=== PATIENT | female | born 1950 | race Caucasian/White ===

== ENCOUNTER 2017-08-05 18:32 | Inpatient (IN) | payer MEDICARE, MEDICAID ==
[2017-08-05 19:51] VITALS: BP 177/91
[2017-08-05] MEDS: Morphine Sulfate 4 mg/mL 1mL Syr IVP PRN ×2 (20:24→23:23)
[2017-08-05] MEDS ORDERED: Magnesium Hydroxide (MOM) 30 mL UDC PO PRN (20:24)
[2017-08-05] MEDS: Sodium Chloride 0.9% 1,000 ML IV SCH (21:13)
[2017-08-05] MEDS: INSULIN ASPART SLIDING SCALE 100 UNITS/ML UNIT SUBQ SCH (21:16)
[2017-08-06] MEDS: Morphine Sulfate 4 mg/mL 1mL Syr IVP PRN ×2 (02:08→05:20)
[2017-08-06 02:47] LABS: URINE MICROSCOPIC INDICATED? YES; URINE SOURCE CATH
[2017-08-06 03:00] LABS: URINE BILIRUBIN NEGATIVE (NEGATIVE); URINE BLOOD SMALL (NEGATIVE); URINE CLARITY HAZY (CLEAR); URINE COLOR YELLOW; URINE GLUCOSE (UA) >=1000 mg/dL (NEGATIVE); URINE KETONE 15 mg/dL (NEGATIVE); URINE LEUKOCYTE ESTERASE NEGATIVE (NEGATIVE); URINE NITRATE POSITIVE (NEGATIVE); URINE PROTEIN 100 mg/dL (NEGATIVE); URINE UROBILINOGEN 0.2 E.U./dL (0.2 - 1.0)
[2017-08-06 04:08] LABS: URINE BACTERIA MODERATE /hpf (NONE SEEN); URINE EPITHELIAL CELLS MODERATE /lpf (FEW)
[2017-08-06] MEDS: INSULIN ASPART SLIDING SCALE 100 UNITS/ML UNIT SUBQ SCH ×4 (07:03→20:33)
[2017-08-06 07:05] LABS: % EOSINOPHILS 0.1 % (0.0-5.0); % LYMPHOCYTES 12.8 % (20.0-50.0); % MONOCYTES 9.8 % (2.0-10.0); % NEUTROPHILS 77.3 % (40.0-80.0); HEMOGLOBIN 13.6 gm/dL (12-16); LYMPHOCYTE ABSOLUTE 1.9 Th/cmm (1.5-3.0); MEAN CELL VOLUME 89.2 fl (81-100); MEAN CORPUSCULAR HEMOGLOBIN 28.9 pg (27.0-31.0); MEAN CORPUSCULAR HGB CONC 32.4 pg (28.0-36.0); MONOCYTE ABSOLUTE 1.5 Th/cmm (0.3-1.0); NEUTROPHILE ABSOLUTE 11.4 Th/cmm (1.8-8.0); PLATELET COUNT 310 Th/cmm (150-400); RED BLOOD COUNT 4.71 Mil/cmm (3.80-5.10); RED CELL DISTRIBUTION WIDTH 12.5 % (11.5-20.0); WHITE BLOOD COUNT 14.8 Th/cmm (4.8-10.8)
[2017-08-06 07:23] LABS: ANION GAP 12.4 (7.0-16.0); BUN - UREA NITROGEN 25 mg/dL (7-25); CALCIUM SERUM 9.3 mg/dL (8.6-10.3); CARBON DIOXIDE 26.2 mEq/L (21.0-31.0); CHLORIDE 104 mEq/L (98-107); GFR AFRICAN-AMERICAN > 60.0 ml/min (>90); GFR NON AFRICAN-AMERICAN 59.3 ml/min; GLUCOSE 346 mg/dL (70-105); POTASSIUM SERUM 3.6 mEq/L (3.5-5.1); SODIUM SERUM 139 mEq/L (136-145)
--- NOTE | 2017-08-06 08:19 | Diagnostic Imaging Report ---
Exam: KUB of the abdomen. HISTORY: Abdominal pain. The KUB of the abdomen reviewed. The study demonstrates evidence of previous cholecystectomy. Multiple metallic clips are noted throughout the abdomen with the postoperative metallic sutures in the lower abdomen upper pelvic area. The urinary bladder opacified most likely with contrast material from previous examination. The bowel gas distribution nonspecific. Bony structures intact. Calcification of distal abdominal aorta and iliac vessels appreciated. IMPRESSION: Nonspecific bowel gas pattern. Residual contrast material reviewed in bladder. Clinical correlation recommended. Extensive postsurgical changes the abdomen.
--- NOTE | 2017-08-06 08:20 | Diagnostic Imaging Report ---
Portable chest x-ray Time: 0812 hours History: Cough Allowing for portable technique the heart size is normal. No focal pulmonary parenchymal processes. No hilar or mediastinal abnormalities. Left basilar atelectasis is noted with pleural thickening Impression: Left basilar atelectasis pleural thickening early infiltrate cannot be excluded follow-up examination recommended if clinically indicated.
[2017-08-06] MEDS: HYDROmorphone 2 mg/mL 1mL Vial IVP PRN (08:28)
[2017-08-06] MEDS ORDERED: oxyCODONE 5 mg IR Tab PO PRN (12:25)
[2017-08-06] MEDS ORDERED: Magnesium Hydroxide (MOM) 30 mL UDC PO PRN (12:25)
[2017-08-06] MEDS ORDERED: OXYCODONE HCL 40 MG PO PRN (12:25)
[2017-08-06] MEDS ORDERED: Magnesium Citrate 1.75 GM/300 mL Bottle PO ONE (12:30)
[2017-08-06] MEDS: Sodium Chloride 0.9% 1,000 ML IV SCH (14:36)
[2017-08-06] MEDS: Hydrocodone/APAP 5mg/325mg Tab PO PRN (16:08)
--- NOTE | 2017-08-06 16:18 | History & Physical ---
ADMIT DATE: 08/06/2017 CHIEF COMPLAINT: Abdominal pain. HISTORY OF PRESENT ILLNESS: A 66-year-old female from [facility], was sent to [place] for the complaint of acute abdominal pain. There a lab data was performed and showed a possible urinary tract infection. Imaging was pending prior to the patient being transferred over to [facility]. Gastroenterology was consulted at that time. The patient appears to have worsening abdominal pain and she vomited several times, coffee ground emesis at [place] and was witnessed to be vomiting bright red blood over at [place]. VITAL SIGNS: Temperature 98.8 degrees, pulse 104, respiratory 19, blood pressure is 154/68. PAST MEDICAL HISTORY: CVA with left side hemiplegia, hyperlipidemia, major depressive disorder, bilateral lower extremity edema, seizure disorder, hypertension, generalized anxiety disorder, diabetes, chronic pain syndrome. PAST SURGICAL HISTORY: No surgeries. FAMILY HISTORY: Unremarkable. SOCIAL HISTORY: Lives at [facility]. Denies drug, alcohol or tobacco. MEDICATIONS: Reviewed and reconciled. REVIEW OF SYSTEMS: CONSTITUTIONAL: No fevers, chills or sweats. EYES: No pain, vision change or redness. ENT: No ear pain, nasal congestion, or mouth pain. RESPIRATORY: Denies cough, shortness of breath, or wheezing. CARDIOVASCULAR: Denies chest pain, palpitations, orthopnea. GASTROINTESTINAL: Admits to diffuse, crampy abdominal pain with associated nausea, but denies vomiting. She did admit to vomiting multiple times with bright red blood. GENITOURINARY: Denies frequency, urgency, hesitancy. MUSCULOSKELETAL: Denies neck, shoulder, back pain. SKIN: No rashes, jaundice, or lesions. NEUROLOGIC: Left-sided paralysis following a stroke with numbness and associated tingling. PHYSICAL EXAMINATION: HEENT: PERRLA, EOMI. NECK: Supple. Trachea midline. CARDIOVASCULAR: Regular rate and rhythm. RESPIRATORY: CTA bilaterally. ABDOMEN: Soft. Tender to palpation diffusely along the left lower quadrant. No guarding or rebound tenderness. EXTREMITIES: Left-sided hemiplegia, +1 nonpitting edema. SKIN: Warm, dry, no rashes or open wounds. NEUROLOGIC: 2-12 are intact. ASSESSMENT: Sacral wounds. PLAN: GI was consulted. They will perform an EGD tomorrow morning. Protonix for GI prophylaxis. Begum catheter due to sacral wounds and possible infection risks. Clear liquid diet, nothing by mouth in the morning due to EGD. Heparin subq for DVT prophylaxis. [facility]# [id number]
[2017-08-06] MEDS ORDERED: VTE Chemical Prophylaxis Screen/Admission MC PRN (16:58)
[2017-08-06 17:31] LABS: A1C % 7.7 % (4.0-6.0)
--- NOTE | 2017-08-07 04:57 | Consultation ---
DATE OF CONSULTATION: 08/06/2017 REASON FOR CONSULTATION: GI bleed and abdominal pain. HISTORY OF PRESENT ILLNESS: This consult was obtained through the courtesy of Dr. Groves for this 66-year-old with history of morbid obesity who is hemiplegic secondary to stroke, who presented to the hospital because of few days of coffee-ground emesis and abdominal pain. Pain was epigastric and supraumbilical. The patient denies any weight loss. She has nausea, vomiting for 3 days accompanied with coffee ground emesis. She has constipation. She occasionally has blood in the stools for her hemorrhoids. PAST MEDICAL HISTORY: Diabetes, coronary artery disease, CVA, and obesity. PAST SURGICAL HISTORY: Small bowel surgery versus gastric surgery, I am not sure. longterm record stated she had gastric ulcer surgery, but the patient stated part of the small intestine was removed for something size of a cantaloupe and then it was connected back together. SOCIAL HISTORY: Ex-smoker, quit 16 years ago, nonalcoholic, non-IV drug abuser. FAMILY HISTORY: The patient is adopted. ALLERGIES: Sulfa. MEDICATIONS: The patient is on Tylenol, vitamin C, Lipitor, Colace, Celexa, heparin, Dilaudid, Zestril, Ativan, milk of magnesia, Antivert, Glucophage, Lopressor, Zofran, Protonix, Lyrica, Klor-Con, senna. REVIEW OF SYSTEMS: As stated above. There is nausea, vomiting, epigastric pain, constipation, rectal bleeding and coffee ground emesis. PHYSICAL EXAMINATION: GENERAL: The patient is awake, oriented to self, place, and time. The patient is in mild distress. VITAL SIGNS: Blood pressure was 154/68, heart rate 104, respiratory rate 18, temperature is 98.8. HEAD AND NECK: Pupils reactive to light. Extraocular muscles intact. Sclerae anicteric, conjunctivae not pale. Oral cavity, no lesion. NECK: Supple. No jugular venous distention, no carotid bruit or lymph node. CHEST: Good respiratory movements. LUNGS: Clear to auscultation. CARDIOVASCULAR: Regular rate and rhythm. No murmur or gallop. ABDOMEN: Soft, positive bowel sound, positive epigastric and supraumbilical tenderness. EXTREMITIES: Lower extremities, no edema. CENTRAL NERVOUS SYSTEM: Unable to evaluate. LABORATORY DATA: CBC showed white count of 14.8, glucose 346. The patient had a KUB which showed some residual contrast. Apparently, the patient had a CAT scan before. By report, it was negative. IMPRESSION: A 66-year-old with abdominal pain and coffee ground emesis. ASSESSMENT AND PLAN: Coffee-ground emesis, most likely peptic ulcer disease, erosive esophagitis, gastritis. RECOMMENDATIONS: 1. PPI. 2. EGD in the morning. 3. Further recommendations to follow. 4. Abdominal pain could be from peptic ulcer disease, could be from ileus. The patient with a previous surgery, but if the CAT scan is negative, we will give the patient a bottle of mag citrate and then we will see the clinical response. Other medical problem such as diabetes, coronary artery disease, CVA, etc., as per Dr. Groves. Thank you, Dr. Groves for allowing me to participate in the care of this patient. If you have any further questions, please let me know. JOB# [id number]
[2017-08-07] MEDS: Sodium Chloride 0.9% 1,000 ML IV SCH ×2 (06:04→23:51)
[2017-08-07 06:26] LABS: % BASOPHILS 0.2 % (0.0-2.0); % EOSINOPHILS 0.2 % (0.0-5.0); % LYMPHOCYTES 18.2 % (20.0-50.0); % MONOCYTES 13.3 % (2.0-10.0); % NEUTROPHILS 68.1 % (40.0-80.0); HEMATOCRIT 42.5 % (41.0-60); HEMOGLOBIN 14.1 gm/dL (12-16); LYMPHOCYTE ABSOLUTE 2.7 Th/cmm (1.5-3.0); MEAN CELL VOLUME 89.4 fl (81-100); MEAN CORPUSCULAR HEMOGLOBIN 29.7 pg (27.0-31.0); MEAN CORPUSCULAR HGB CONC 33.2 pg (28.0-36.0); NEUTROPHILE ABSOLUTE 10.3 Th/cmm (1.8-8.0); PLATELET COUNT 307 Th/cmm (150-400); RED BLOOD COUNT 4.76 Mil/cmm (3.80-5.10); RED CELL DISTRIBUTION WIDTH 12.7 % (11.5-20.0)
[2017-08-07] MEDS: INSULIN ASPART SLIDING SCALE 100 UNITS/ML UNIT SUBQ SCH ×4 (06:41→20:52)
[2017-08-07 06:54] LABS: ANION GAP 11.2 (7.0-16.0); BUN - UREA NITROGEN 22 mg/dL (7-25); CALCIUM SERUM 8.9 mg/dL (8.6-10.3); CARBON DIOXIDE 28.7 mEq/L (21.0-31.0); CHLORIDE 103 mEq/L (98-107); CREATININE - SERUM 0.7 mg/dL (0.6-1.2); GFR AFRICAN-AMERICAN > 60.0 ml/min (>90); GFR NON AFRICAN-AMERICAN > 60.0 ml/min; POTASSIUM SERUM 3.9 mEq/L (3.5-5.1); SODIUM SERUM 139 mEq/L (136-145)
[2017-08-07 06:59] LABS: GLUCOSE 175 mg/dL (70-105)
[2017-08-07 07:06] LABS: INR 1.06 (0.5-1.4)
[2017-08-07] MEDS ORDERED: Propofol 10 mg/mL 20mL Vial **SURGERY USE ONLY IV ONE (08:20)
[2017-08-07] MEDS ORDERED: Lidocaine 2% Gel 5 mL TP ONE (08:20)
[2017-08-07] MEDS ORDERED: Midazolam 1mg/ml 2 ml vial IV ONE (08:20)
[2017-08-07] MEDS ORDERED: fentaNYL Citrate 100 mcg/2mL Vial IV ONE (08:20)
[2017-08-07] MEDS: HYDROmorphone 2 mg/mL 1mL Vial IVP PRN (08:24)
[2017-08-07] MEDS: Potassium Chloride 20 mEq ER Tab PO SCH (08:45)
[2017-08-07] MEDS ORDERED: TICAGRELOR 90 MG PO SCH (09:00)
[2017-08-07] MEDS: Hydrocodone/APAP 5mg/325mg Tab PO PRN (11:34)
--- NOTE | 2017-08-07 13:16 | Operative Report ---
DATE OF SURGERY: 08/07/2017 INPATIENT GASTROINTESTINAL PROCEDURE NAME OF PROCEDURE: EGD with biopsy. REFERRING PHYSICIAN: Dr. Groves. REASON FOR PROCEDURE: Upper GI bleed in the form of coffee-ground emesis. CONSENT: Risks, benefits, alternatives, nature, indication, and possible outcomes were discussed. Mentioned bleeding, infection, perforation, , disability, cardiopulmonary distress and arrest, missed lesion and cancers, and need for surgery. The patient expressed understanding and provided informed consent. PREOPERATIVE DIAGNOSIS: Upper gastrointestinal bleeding. POSTOPERATIVE DIAGNOSES: Hemorrhagic gastritis, hiatal hernia, and irregular Z-line. MEDICATIONS: MAC provided by anesthesiologist. DESCRIPTION OF PROCEDURE: The patient was placed on the left side. Upper endoscope was advanced from the mouth to the second portion of duodenum, which appeared to be normal with bile. Scope brought back in stomach, retroflexion view of fundus, cardia, lesser curvature, and hiatal hernia. Scope was then straightened. Hemorrhagic gastritis was seen with associated coffee-ground secretions. Biopsies were taken. No obvious ulcers or masses were seen. Scope was slowly withdrawn through esophagus where there was an irregular Z-line, biopsies were taken, and scope was then removed. COMPLICATIONS: None. FINDINGS: 1. GE junction at 37 cm with a medium size hiatal hernia with no associated bleeding within the hiatal hernia. 2. Hemorrhagic gastritis, status post biopsy likely source of bleeding. 3. Normal duodenum. RECOMMENDATIONS: 1. Follow up on biopsy. 2. Provide the patient with Protonix. 3. If hiatal hernia ever becomes symptomatic, consider surgical evaluation. Thank you for allowing me to participate. Please call me if any questions. JOB# [id number]
[2017-08-08 06:25] LABS: % BASOPHILS 0.3 % (0.0-2.0); % EOSINOPHILS 1.5 % (0.0-5.0); % LYMPHOCYTES 33.9 % (20.0-50.0); % NEUTROPHILS 52.3 % (40.0-80.0); EOSINOPHILE ABSOLUTE 0.2 Th/cmm (0.1-0.4); HEMOGLOBIN 11.6 gm/dL (12-16); LYMPHOCYTE ABSOLUTE 3.6 Th/cmm (1.5-3.0); MEAN CELL VOLUME 90.4 fl (81-100); MEAN CORPUSCULAR HEMOGLOBIN 29.7 pg (27.0-31.0); MEAN CORPUSCULAR HGB CONC 32.8 pg (28.0-36.0); MEAN PLATELET VOLUME 8.4 fl; MONOCYTE ABSOLUTE 1.3 Th/cmm (0.3-1.0); NEUTROPHILE ABSOLUTE 5.6 Th/cmm (1.8-8.0); RED CELL DISTRIBUTION WIDTH 12.1 % (11.5-20.0)
[2017-08-08 06:30] LABS: HEMATOCRIT 35.2 % (41.0-60); PLATELET COUNT 241 Th/cmm (150-400); WHITE BLOOD COUNT 10.7 Th/cmm (4.8-10.8)
[2017-08-08] MEDS: INSULIN ASPART SLIDING SCALE 100 UNITS/ML UNIT SUBQ SCH ×3 (06:37→16:56)
[2017-08-08 08:06] LABS: ANION GAP 10.5 (7.0-16.0); BUN - UREA NITROGEN 15 mg/dL (7-25); CALCIUM SERUM 8.3 mg/dL (8.6-10.3); CARBON DIOXIDE 27.3 mEq/L (21.0-31.0); CHLORIDE 102 mEq/L (98-107); CREATININE - SERUM 0.7 mg/dL (0.6-1.2); GFR AFRICAN-AMERICAN > 60.0 ml/min (>90); GFR NON AFRICAN-AMERICAN > 60.0 ml/min; GLUCOSE 109 mg/dL (70-105); POTASSIUM SERUM 3.8 mEq/L (3.5-5.1); SODIUM SERUM 136 mEq/L (136-145)
--- NOTE | 2017-08-08 08:43 | GI Progress Note ---
Subjective - Review of Systems Subjective: STILL HAS EPIGASTRIC PAIN Objective - Results Result Diagrams: 08/08/17 05:37 08/08/17 05:37 Recent Labs: Laboratory Last Values WBC 10.7 Th/cmm (4.8-10.8) D 08/08/17 05:37 RBC 3.90 Mil/cmm (3.80-5.10) 08/08/17 05:37 Hgb 11.6 gm/dL (12-16) L 08/08/17 05:37 Hct 35.2 % (41.0-60) L D 08/08/17 05:37 MCV 90.4 fl (81-100) 08/08/17 05:37 MCH 29.7 pg (27.0-31.0) 08/08/17 05:37 MCHC Differential 32.8 pg (28.0-36.0) 08/08/17 05:37 RDW 12.1 % (11.5-20.0) 08/08/17 05:37 Plt Count 241 Th/cmm (150-400) D 08/08/17 05:37 MPV 8.4 fl 08/08/17 05:37 Neutrophils % 52.3 % (40.0-80.0) 08/08/17 05:37 Lymphocytes % 33.9 % (20.0-50.0) 08/08/17 05:37 Monocytes % 12.0 % (2.0-10.0) H 08/08/17 05:37 Eosinophils % 1.5 % (0.0-5.0) 08/08/17 05:37 Basophils % 0.3 % (0.0-2.0) 08/08/17 05:37 PT 11.0 SECONDS (9.5-11.5) 08/07/17 05:46 INR 1.06 (0.5-1.4) 08/07/17 05:46 Sodium 136 mEq/L (136-145) 08/08/17 05:37 Potassium 3.8 mEq/L (3.5-5.1) 08/08/17 05:37 Chloride 102 mEq/L (98-107) 08/08/17 05:37 Carbon Dioxide 27.3 mEq/L (21.0-31.0) 08/08/17 05:37 Anion Gap 10.5 (7.0-16.0) 08/08/17 05:37 BUN 15 mg/dL (7-25) 08/08/17 05:37 Creatinine 0.7 mg/dL (0.6-1.2) 08/08/17 05:37 Est GFR ( Amer) > 60.0 ml/min (>90) 08/08/17 05:37 Est GFR (Non-Af Amer) > 60.0 ml/min 08/08/17 05:37 BUN/Creatinine Ratio 21.4 08/08/17 05:37 Glucose 109 mg/dL (70-105) H 08/08/17 05:37 POC Glucose 123 MG/DL (70 - 105) H 08/08/17 05:46 Hemoglobin A1c % 7.7 % (4.0-6.0) H 08/06/17 05:55 Calcium 8.3 mg/dL (8.6-10.3) L 08/08/17 05:37 Urine Source CATH 08/06/17 02:17 Urine Color YELLOW 08/06/17 02:17 Urine Clarity HAZY (CLEAR) 08/06/17 02:17 Urine pH 5.0 (4.6 - 8.0) 08/06/17 02:17 Ur Specific [place] 1.025 (1.005-1.030) 08/06/17 02:17 Urine Protein 100 mg/dL (NEGATIVE) H 08/06/17 02:17 Urine Glucose (UA) >=1000 mg/dL (NEGATIVE) H 08/06/17 02:17 Urine Ketones 15 mg/dL (NEGATIVE) H 08/06/17 02:17 Urine Blood SMALL (NEGATIVE) H 08/06/17 02:17 Urine Nitrate POSITIVE (NEGATIVE) H 08/06/17 02:17 Urine Bilirubin NEGATIVE (NEGATIVE) 08/06/17 02:17 Urine Urobilinogen 0.2 E.U./dL (0.2 - 1.0) 08/06/17 02:17 Ur Leukocyte Esterase NEGATIVE (NEGATIVE) 08/06/17 02:17 Urine RBC 2-5 /hpf (0-5) 08/06/17 02:17 Urine WBC 6-10 /hpf (0-5) H 08/06/17 02:17 Ur Epithelial Cells MODERATE /lpf (FEW) 08/06/17 02:17 Urine Bacteria MODERATE /hpf (NONE SEEN) H 08/06/17 02:17 - Physical Exam Vitals and I&O: Vital Signs Temp 97.6 F 08/08/17 08:09 Pulse 56 08/08/17 08:39 Resp 12 08/08/17 08:39 BP 90/46 08/08/17 08:09 Pulse Ox 98 08/08/17 08:39 Intake & Output 08/07/17 08/08/17 08/08/17 18:59 06:59 18:59 Intake Total 100 1580 Output Total 1000 Balance 100 580 Weight (lbs) 73.482 kg Intake: Intake, IV Amount 100 1100 Piperacillin Sodium/ 100 100 Tazobact 3.375 gm In Dextrose 5% 50 ml @ 100 mls/hr IV Q6HR [facility] Rx#: [id number] Sodium Chloride 0.9% 1, 1000 000 ml @ 60 mls/hr IV . [id number] [facility] Rx#:[id number] Oral 480 Output: Urine 1000 Other: # Bowel Movements 0 Stool Characteristics Formed Formed Active Medications: Current Medications Acetaminophen (Tylenol) 650 mg PO Q6H PRN PRN Reason: Mild Pain/Headache/T above 101 Stop: 10/04/17 20:23 Acetaminophen/Hydrocodone Bitart ([place] 5mg/325mg) 1 tab PO Q6H PRN PRN Reason: MODERATE PAIN Stop: 10/04/17 20:13 Last Admin: 08/07/17 11:34 Dose: 1 tab Ascorbic Acid (Vitamin C) 500 mg PO DAILY [facility] Stop: 10/06/17 08:59 Last Admin: 08/07/17 08:42 Dose: Not Given Atorvastatin Calcium (Lipitor) 40 mg PO DAILY [facility] Stop: 10/06/17 08:59 Last Admin: 08/07/17 08:43 Dose: Not Given Bisacodyl (Dulcolax 10 Mg Supp) 10 mg RC DAILY PRN PRN Reason: CONSTIPATION Stop: 10/05/17 12:25 Citalopram Hydrobromide (Celexa) 20 mg PO HS EREN PRN Reason: Protocol Stop: 10/05/17 20:59 Last Admin: 08/07/17 20:52 Dose: 20 mg Heparin Sodium (Porcine) (Heparin) 5,000 units SUBQ Q12HR [facility] Stop: 10/04/17 20:59 Last Admin: 08/07/17 20:52 Dose: 5,000 units Hydralazine HCl (Apresoline 20 Mg/Ml) 10 mg IV Q6HR PRN PRN Reason: htn Stop: 10/04/17 20:27 Hydromorphone HCl (Dilaudid) 0.5 mg IVP Q4HR PRN PRN Reason: Severe Pain Stop: 10/05/17 07:40 Last Admin: 08/07/17 08:24 Dose: 0.5 mg Sodium Chloride (Nacl 0.9%) 1,000 mls @ 60 mls/hr IV .[id number] [facility] Stop: 10/04/17 20:29 Last Admin: 08/07/17 23:51 Dose: 60 mls/hr Piperacillin Sod/Tazobactam (Sod 3.375 gm/ Dextrose) 50 mls @ 100 mls/hr IV Q6HR [facility] Stop: 10/06/17 11:59 Last Infusion: 08/08/17 05:45 Dose: Infused Insulin Aspart (Novolog Insulin Sliding Scale) 0 units SUBQ ACHS EREN PRN Reason: Protocol Stop: 10/04/17 20:59 Last Admin: 08/08/17 06:37 Dose: Not Given Lisinopril (Zestril) 20 mg PO DAILY [facility] Stop: 10/06/17 08:59 Last Admin: 08/07/17 08:43 Dose: Not Given Lorazepam (Ativan) 0.5 mg PO Q6HR PRN; Protocol PRN Reason: Anxiety Stop: 10/05/17 12:24 Last Admin: 08/07/17 23:50 Dose: 0.5 mg Magnesium Hydroxide (Milk Of Magnesia) 30 ml PO HS PRN PRN Reason: Constipation Stop: 10/04/17 20:23 Meclizine HCl (Antivert) 25 mg PO Q8HR PRN PRN Reason: Dizziness Stop: 10/05/17 12:24 Metformin HCl (Glucophage) 500 mg PO BID [facility] Stop: 10/05/17 16:59 Last Admin: 08/07/17 16:54 Dose: 500 mg Metoprolol Tartrate (Lopressor) 25 mg PO BID [facility] Stop: 10/05/17 16:59 Last Admin: 08/07/17 16:56 Dose: 25 mg Miscellaneous (Vte Chemical Prophylaxis Screen/ Admission) 1 ea [facility] PRN PRN PRN Reason: PROTOCOL Stop: 10/05/17 16:57 Ondansetron HCl (Zofran) 4 mg IVP Q6H PRN PRN Reason: Nausea / Vomiting Stop: 10/04/17 20:23 Last Admin: 08/07/17 15:00 Dose: 4 mg Oxycodone HCl (Oxycodone Ir) 5 mg PO Q4HR PRN PRN Reason: Severe Pain Stop: 10/05/17 12:24 Oxycodone HCl (Oxycontin) 40 mg PO TID EREN Stop: 10/05/17 20:59 Last Admin: 08/07/17 20:52 Dose: 40 mg Pantoprazole Sodium (Protonix) 40 mg IVP BID EREN Stop: 10/05/17 16:59 Last Admin: 08/07/17 16:57 Dose: 40 mg Ticagrelor (Brilinta () 90mg Tablet) 1 PO DAILY EREN Stop: 10/07/17 08:59 Potassium Chloride (Klor-Con) 20 meq PO DAILY [facility] Stop: 10/06/17 08:59 Last Admin: 08/07/17 08:45 Dose: Not Given Pregabalin (Lyrica) 75 mg PO BID EREN Stop: 10/05/17 16:59 Last Admin: 08/07/17 16:54 Dose: 75 mg Senna (Senna) 8.6 mg PO DAILY [facility] Stop: 10/06/17 08:59 Last Admin: 08/07/17 08:45 Dose: Not Given Assessment/Plan - Assessment Assessment: 66 YO FEMALE WITH EPIGASTRIC PAIN EGD SHOWED HIATAL HERNIA AND HEMORRHAGIC GASTRITIS 1.CONT PROTONIX 2.AWAIT BX 3.CHECK LFTS, LIPASE, KARAN
[2017-08-08] MEDS: Potassium Chloride 20 mEq ER Tab PO SCH (08:47)
[2017-08-08] MEDS: TICAGRELOR 90 MG PO SCH (09:10)
[2017-08-08 09:46] LABS: ALB/GLOB RATIO 1.6 (1.0-1.8); ALBUMIN 3.4 gm/dL (3.7-5.3); BILIRUBIN,TOTAL 0.5 mg/dL (0.3-1.0); TOTAL PROTEIN,SERUM 5.5 gm/dL (6.0-8.3)
[2017-08-08 09:48] LABS: BILIRUBIN,DIRECT 0.09 mg/dL (0.0-0.2)
[2017-08-08] MEDS ORDERED: Magnesium Hydroxide (MOM) 30 mL UDC PO ONE (10:33)
[2017-08-08] MEDS: Lactulose 10 Gm/15 mL 30mL UDC PO SCH ×2 (11:16→17:16)
[2017-08-08] MEDS: HYDROmorphone 2 mg/mL 1mL Vial IVP PRN (12:01)
[2017-08-08] MEDS ORDERED: Probiotic Screen MC PRN (16:15)
[2017-08-08] MEDS: Sodium Chloride 0.9% 1,000 ML IV SCH (17:18)
[2017-08-08] MEDS: Hydrocodone/APAP 5mg/325mg Tab PO PRN (23:55)
[2017-08-09] MEDS: INSULIN ASPART SLIDING SCALE 100 UNITS/ML UNIT SUBQ SCH ×3 (00:40→11:04)
[2017-08-09 05:49] LABS: % BASOPHILS 0.1 % (0.0-2.0); % EOSINOPHILS 2.4 % (0.0-5.0); % LYMPHOCYTES 28.7 % (20.0-50.0); % MONOCYTES 10.9 % (2.0-10.0); % NEUTROPHILS 57.9 % (40.0-80.0); EOSINOPHILE ABSOLUTE 0.2 Th/cmm (0.1-0.4); HEMATOCRIT 33.1 % (41.0-60); HEMOGLOBIN 11.3 gm/dL (12-16); LYMPHOCYTE ABSOLUTE 2.3 Th/cmm (1.5-3.0); MEAN CELL VOLUME 88.8 fl (81-100); MEAN CORPUSCULAR HEMOGLOBIN 30.3 pg (27.0-31.0); MEAN CORPUSCULAR HGB CONC 34.1 pg (28.0-36.0); MEAN PLATELET VOLUME 8.9 fl; MONOCYTE ABSOLUTE 0.9 Th/cmm (0.3-1.0); NEUTROPHILE ABSOLUTE 4.6 Th/cmm (1.8-8.0); PLATELET COUNT 187 Th/cmm (150-400); RED BLOOD COUNT 3.73 Mil/cmm (3.80-5.10); RED CELL DISTRIBUTION WIDTH 12.2 % (11.5-20.0)
[2017-08-09 05:58] LABS: ANION GAP 8.1 (7.0-16.0); BUN - UREA NITROGEN 14 mg/dL (7-25); CARBON DIOXIDE 26.4 mEq/L (21.0-31.0); CHLORIDE 103 mEq/L (98-107); CREATININE - SERUM 0.7 mg/dL (0.6-1.2); GFR AFRICAN-AMERICAN > 60.0 ml/min (>90); GFR NON AFRICAN-AMERICAN > 60.0 ml/min; GLUCOSE 109 mg/dL (70-105); POTASSIUM SERUM 3.5 mEq/L (3.5-5.1); SODIUM SERUM 134 mEq/L (136-145)
[2017-08-09] MEDS ORDERED: Lactobacillus Rhamnosus GG 15 Billion CFU CAP.SPRINK PO SCH (09:00)
[2017-08-09] MEDS: Lactulose 10 Gm/15 mL 30mL UDC PO SCH (09:16)
[2017-08-09] MEDS: TICAGRELOR 90 MG PO SCH (09:17)
[2017-08-09] MEDS: Potassium Chloride 20 mEq ER Tab PO SCH (09:17)
--- NOTE | 2017-08-09 10:06 | Progress Notes ---
DATE: SUBJECTIVE: The patient is lying comfortably in bed, continues to complain of abdominal pain at this time. The patient had an EGD this morning, which revealed a hiatal hernia and hemorrhagic gastritis. Pain is currently controlled when she takes pain medication. No nausea or vomiting. Diet; advance to clears. OBJECTIVE: VITAL SIGNS: Temperature 97.9, pulse 98, blood pressure 159/78, respirations 18. GENERAL: NAD. HEENT: PERRLA, EOMI. NECK: Supple. Trachea midline. CARDIOVASCULAR: Regular rate and rhythm. RESPIRATORY: CTA bilaterally. No wheezes, rales or rhonchi. ABDOMEN: Soft, nontender, nondistended. Bowel sounds present in all 4 quadrants. SKIN: No rashes or open wounds. MUSCULOSKELETAL: Left-sided hemiplegia. LABORATORY DATA: White blood cell count 15. Sodium 139, potassium 3.9. ASSESSMENT: Hyperlipidemia, major depressive disorder, DVT prophylaxis, hypertension, diabetes, chronic pain syndrome. PLAN: Zosyn. Pain control. Continue metoprolol, lisinopril, metformin, Accu-Cheks, regular insulin sliding scale. Diet has been advanced to clear liquids. JOB# [id number]
--- NOTE | 2017-08-09 10:38 | Diagnostic Imaging Report ---
Abdominal ultrasound HISTORY: Pain The liver appears enlarged. There is an increase in hepatic parenchymal echogenicity. The finding may be associated with fatty infiltration and should be correlated with liver function tests. No focal lesions. The gallbladder is not seen consistent with patient's surgical history. No biliary dilatation. The pancreas is not well seen due to bowel gas. The kidneys appear normal bilaterally. The spleen is normal in size. No other retroperitoneal or intra-abdominal abnormalities. IMPRESSION: 1. Limited exam due to bowel gas as noted above. 2. Suggestion of hepatomegaly along with parenchymal changes that may reflect fatty infiltration. The findings should be correlated with liver function tests 3. Nonvisualization of the gallbladder consistent with the patient's surgical history.
[2017-08-09] MEDS: Sodium Chloride 0.9% 1,000 ML IV SCH (13:50)
--- NOTE | 2017-08-10 | Discharge Summary ---
DATE OF DISCHARGE: 08/09/2017 DISCHARGE DIAGNOSES: Aspiration pneumonia, hyperlipidemia, major depressive disorder, DVT prophylaxis, diabetes, chronic pain syndrome, hypertension, hiatal hernia, hemorrhagic gastritis. ADMITTING DIAGNOSES: Abdominal pain, aspiration pneumonia, hypertension, and diabetes. HISTORY OF PRESENT ILLNESS: A 66-year-old female presented from [facility] with the chief complaint of abdominal pain. Gastroenterology was consulted and opted to perform an EGD. At that time hemorrhagic gastritis was found with irregular Z-line and hiatal hernia. No colonoscopy was performed at that time. No rectal bleeding had been seen. The patient's hemoglobin remained stable in the mid to high at 11. Urinalysis revealed urinary tract infection with MDRO E. coli, which was sensitive to Zosyn. The patient will be discharged back to [facility] on Zosyn with the diagnosis of aspiration pneumonia and urinary tract infection. COMPLICATIONS: None. PROCEDURES: EGD. DISPOSITION: Stable back to [place]. Follow up with Dr. Groves upon arrival. JOB# [id number]
--- NOTE | 2017-08-10 14:20 | Pathology Report ---
[id number] Collection Date: 08/07/2017 Surgeon: Dr. Steve Moseley Specimen Description: 1. Antrum biopsy 2. GE junction biopsy Gross Description: Part I: Received in formalin are two smith soft tissue fragments ranging from 0.1 to 0.2 cm in greatest dimension. Totally submitted in one cassette labeled A. Gross Description: Part II: Received in formalin are two smith soft tissue fragments ranging from 0.1 to 0.2 cm in greatest dimension. Totally submitted in one cassette labeled B. Microscopic Description: Part I: The histologic sections show gastric mucosa with chronic inflammation present consisting of lymphocytes and plasma cells. The Giemsa stain shows no evidence for Helicobacter pylori. Diagnosis: Part I: 1. Chronic gastritis, antrum biopsy. 2. The Giemsa stain is negative for Helicobacter pylori. Microscopic Description: Part II: The histologic sections show squamous and glandular mucosa consistent with GE junction with chronic inflammation present consisting of increased numbers of lymphocytes and plasma cells. The Alcian blue stain shows no evidence for abnormality. The PAS stain shows no evidence for fungal organisms. Diagnosis: Part II: Chronic inflammation consistent with esophagogastritis (GE junction biopsy). JOB# [id number]
--- NOTE | 2017-08-25 11:57 | Discharge Summary ---
DATE OF DISCHARGE: DISCHARGE DIAGNOSES: Aspiration pneumonia, CVA with left-sided hemiplegia, diabetes, fecal impaction with obstipation, hyperlipidemia, major depressive disorder, hypertension, generalized anxiety disorder, polyneuropathy, hiatal hernia, and gastritis. ADMITTING DIAGNOSES: Abdominal pain, constipation, CVA with left-sided hemiplegia, hypertension, hyperlipidemia. HISTORY OF PRESENT ILLNESS: A 66-year-old female who presented from [place] with a chief complaint of abdominal pain. Imaging was performed and revealed constipation. The patient has a longstanding history of gastritis as well as ulcerations. Gastroenterology was consulted and at that time, the patient underwent an EGD, which revealed hemorrhagic gastritis with hiatal hernia. The patient was started on Protonix due to the gastritis and the hiatal hernia. The patient started to have bowel movements after medications were adjusted. Following the bowel movements, her abdominal pain resolved and she was discharged back to [place]. DISPOSITION: [place], stable. Chest x-ray was also performed and it revealed that patient had aspiration pneumonia. She was started on Zosyn, that will be continued over at shelter. Follow up will be with Dr. Groves. PROCEDURE: EGD. COMPLICATIONS: None. JOB# [id number]
== END 2017-08-09 16:30 | DRG 177 ==
LOC: TELE 18:32
PROVIDERS: ADMIT Family Medicine; ATTEND Family Medicine
PROC: 0DB68ZX Excision of Stomach, Via Natural or Artificial Opening Endoscopic, Diagnostic (ICD-10-PCS; principal; 2017-08-07)
DX: J69.0 Pneumonitis due to inhalation of food and vomit (principal); K29.71 Gastritis, unspecified, with bleeding; E66.01 Morbid (severe) obesity due to excess calories; N39.0 Urinary tract infection, site not specified; I69.354 Hemiplegia and hemiparesis following cerebral infarction affecting left non-dominant side; E11.9 Type 2 diabetes mellitus without complications; B96.20 Unspecified Escherichia coli [E. coli] as the cause of diseases classified elsewhere; E78.5 Hyperlipidemia, unspecified; F32.9 Major depressive disorder, single episode, unspecified; K44.9 Diaphragmatic hernia without obstruction or gangrene; G40.909 Epilepsy, unspecified, not intractable, without status epilepticus; I10 Essential (primary) hypertension; G89.4 Chronic pain syndrome; F41.1 Generalized anxiety disorder; I25.10 Atherosclerotic heart disease of native coronary artery without angina pectoris; Z16.24 Resistance to multiple antibiotics; Z68.32 Body mass index [BMI] 32.0-32.9, adult
CPT/HCPCS: 36415-UA; 71045-TC; 74000-TC; 76700-TC; 80048-TC; 80076-TC; 81001-TC; 82948-90; 83036-90; 83690-TC; 85025-TC; 85610-TC; 87086-90; 88305-90; 88312-90; 93005; 94760; C9113; J0360; J1170; J1644; J1815; J2250; J2405; J2543; J2704; J3010; J7030; X6158; Z7512; Z7610

== ENCOUNTER 2018-11-09 12:21 | Inpatient (IN) | payer MEDICARE, BC ==
[2018-11-09] MEDS ORDERED: Sodium Chloride 0.9% 1,000 ML IV ONE (12:35)
[2018-11-09 13:02] LABS: % BASOPHILS 3.9 % (0.0-2.0); % EOSINOPHILS 0.2 % (0.0-5.0); % MONOCYTES 3.9 % (2.0-10.0); BASOPHILE ABSOLUTE 0.7 Th/cumm (0-0.2); HEMATOCRIT 41.9 % (41.0-60); LYMPHOCYTE ABSOLUTE 1.3 Th/cmm (1.5-3.0); MEAN CELL VOLUME 83.5 fl (81-100); MEAN CORPUSCULAR HEMOGLOBIN 27.8 pg (27.0-31.0); MEAN CORPUSCULAR HGB CONC 33.3 pg (28.0-36.0); MEAN PLATELET VOLUME 8.9 fl; MONOCYTE ABSOLUTE 0.7 Th/cmm (0.3-1.0); NEUTROPHILE ABSOLUTE 15.8 Th/cmm (1.8-8.0); PLATELET COUNT 357 Th/cmm (150-400); RED BLOOD COUNT 5.02 Mil/cmm (3.80-5.20); RED CELL DISTRIBUTION WIDTH 14.2 % (11.5-20.0)
[2018-11-09 13:06] LABS: WHITE BLOOD COUNT 18.5 Th/cmm (4.8-10.8)
--- NOTE | 2018-11-09 13:06 | ED Physician Chart ---
ED Chief Complaint/HPI - Patient Information Date Seen:: 11/09/18 Time Seen:: 12:45 Chief Complaint:: Abdominal Pain History of Present Illness:: onset x 2 days of intermittent, diffuse, crampy Abdominal Pain, N/V/D; pt denies trauma, H/As, S/T, neck pain, C/P, SOB, A/c, fever, chills, or urinary s/ s Allergies:: Allergies Allergy/AdvReac Type Severity Reaction Status Date / Time Sulfa (Sulfonamide Allergy Severe palpitation Verified 11/09/18 12:58 Antibiotics) trazodone Allergy Verified 11/09/18 12:58 Vitals:: Vital Signs - 8 hr 11/09/18 12:44 Temp 97.6 F HR 64 RR 16 BP 159/72 O2 Sat % 96 Historian:: Patient, EMS Review:: Nurse's Note Reviewed, Old Chart Reviewed, EMS run form Reviewed ED Review of Systems - Review of Systems General/Constitutional: No fever, No chills, No weight loss, No weakness, No diaphoresis, No edema, No loss of appetite Skin: No skin lesions, No rash, No bruising Head: No headache, No light-headedness Eyes: No loss of vision, No pain, No diplopia ENT: No earache, No nasal drainage, No sore throat, No tinnitus Neck: No neck pain, No swelling, No thyromegaly, No stiffness, No mass noted Cardio Vascular: No chest pain, No palpitations, No PND, No orthopnea, No edema Pulmonary: No SOB, No cough, No sputum, No wheezing GI: Nausea, Vomiting, Diarrhea, Pain, No melena, No hematochezia, No constipation, No hematemesis G/U: No dysuria, No frequency, No hematuria, No nacturia Cork Mixer: No vaginal discharge, No abnormal vaginal bleed, No contraction Musculoskeletal: No bone or joint pain, No back pain, No muscle pain Endocrine: No polyuria, No polydipsia Psychiatric: No prior psych history, No depression, No anxiety, No suicidal ideation, No homicidal ideation, No auditory hallucination, No visual hallucination Hematopoietic: No bruising, No lymphadenopathy Allergic/Immuno: No urticaria, No angioedema Neurological: No syncope, No focal symptoms, No weakness, No paresthesia, No headache, No seizure, No dizziness, No confusion, No vertigo ED Past Medical History - Past Medical History Obtainable: Yes Past Medical History: HTN, DM, Dyslipidemia Family History: Diabetes Melitus, HTN Social History: Non Smoker, No Alcohol, No Drug Use, , Care Facility Surgical History: Cholecystectomy Psychiatricy History: None Medication: Reviewed Family Medical History - Family Member Daughter History Unknown: Yes Ethnicity: Unknown Living Status: Unknown Hx Family Cancer: (unknown) Hx Family Coronary Artery Disease: (UNKNOWN) Hx Family Congestive Heart Failure: (UNKNOWN) Hx Family Hypertension: (UNKNOWN) Hx Family Stroke: (UNKNOWN) Hx Family Diabetes: (UNKNOWN) Hx Family Seizures: (UNKNOWN) Hx Family Dementia: (UNKNOWN) Hx Family AIDS: (UNKNOWN) Hx Family COPD: (UNKNOWN) Hx Family Hepatitis: (UNKNOWN) Hx Family Psychiatric Problems: (UNKNOWN) Hx Family Tuberculosis: (UNKNOWN) ED Physical Exam - Physical Examination General/Constitutional: Awake, Well-developed, well-nourished, Alert, No distress, GCS 15, Non-toxic appearing, Ambulatory Head: Atraumatic Eyes: Lids, conjuctiva normal, PERRL, EOMI Skin: Nl inspection, No rash, No skin lesions, No ecchymosis, Well hydrated, No lymphadenopathy ENMT: External ears, nose nl, TM canals nl, Nasal exam nl, Lips, teeth, gums nl , Oropharynx nl, Tonsils nl Neck: Nontender, Full ROM w/o pain, No JVD, No nuchal rigidity, No bruit, No mass, No stridor Other Neck comments:: supple; no meningeal signs; no cervical tenderness Respiratory: Nl effort/Exclusion, Clear to Auscultation, No Wheeze/Rhonchi/Rales Cardio Vascular: RRR, No murmur, gallop, rubs, NL S1 S2, Carotid/Femoral/Distal pulses equal bilaterally GI: No organomegaly, No hernia, Normal BS's, Nondistended, No mass/bruits, No McBurney tenderness, Rectum exam nl Other GI comments:: no pulsatile masses; + Diffuse Tenderness : No CVA tenderness Extremities: No tenderness or effusion, Full ROM, normal strength in all extremities, No edema, Normal digits & nails Neuro/Psych: Alert/oriented, DTR's symmetric, Normal sensory exam, Normal motor strength, Judgement/insight normal, Mood normal, Normal gait, No focal deficits Misc: Normal back, No paraspinal tenderness ED Labs/Radiology/EKG Results - Lab Results Comments:: Reviewed - Radiology Results Comments:: NAD; + Fecal Impaction; ASCVD - EKG Interpretations EKG Time:: 12:44 Rate & Rhythm: 68; NSR Comments:: IVCD; non-specific st-t changes ED Septic Shock - . Is Septic Shock (SBP<90, OR Lactate>4 mmol\L) present?: No - <6hrs of presentation: Vital Signs: Vital Signs - 8 hr 11/09/18 12:44 Temp 97.6 F HR 64 RR 16 BP 159/72 O2 Sat % 96 ED Reassessment (Disposition) - Reassessment Reassessment Condition:: Improved - Diagnosis Diagnosis:: Abdominal Pain; N/V/D; AGE; DM; HTN; Dehydration; Elevated Lactic Acid; Lactic Acidosis; Hematuria; Leukocytosis; Hyponatremia; Hyperglycemia; Elevated BNP; Diabetic Gastroparesis - Aftercare/Follow up Instructions Aftercare/Follow-Up Instructions:: Counseled pt regarding lab results/diagnosis & need follow up, Counseled pt & family regarding lab results/diagnosis & need follow up - Patient Disposition Discharge/Transfer:: Acute Care w/in this hosp Accepting Physician:: Dr. Koroma Time Called:: 1440 Time Responded:: 14:40 Admitted to:: Telemetry Spoke to:: Dr. Koroma Admitting Medical Physician:: Dr. Koroma Condition at Disposition:: Stable, Improved
[2018-11-09 13:11] LABS: INR 1.09 (0.5-1.4); PROTHROMBIN TIME (TEST) 11.3 SECONDS (9.5-11.5)
[2018-11-09 13:17] LABS: ALB/GLOB RATIO 1.1 (1.0-1.8); ALBUMIN 4.5 gm/dL (3.7-5.3); ALKALINE PHOSPHATASE 114 U/L (34-104); AMYLASE SERUM 43 U/L (29-103); ANION GAP 21.7 (7.0-16.0); BILIRUBIN,TOTAL 0.8 mg/dL (0.3-1.0); BUN - UREA NITROGEN 22 mg/dL (7-25); CALCIUM SERUM 10.1 mg/dL (8.6-10.3); CARBON DIOXIDE 19.1 mEq/L (21.0-31.0); CHLORIDE 95 mEq/L (98-107); CHOLESTEROL 130 mg/dL (<200); CREATININE - SERUM 0.9 mg/dL (0.6-1.2); CREATININE KINASE 82 U/L (30-223); GFR AFRICAN-AMERICAN > 60.0 ml/min (>90); GFR NON AFRICAN-AMERICAN > 60.0 ml/min; GLUCOSE 364 mg/dL (70-105); HDL -HIGH DENSITY LIPOPROTEIN 42 mg/dL (23-92); LIPASE 36 U/L (11-82); POTASSIUM SERUM 3.8 mEq/L (3.5-5.1); SGOT 25 U/L (13-39); SGPT/ALT 17 U/L (7-52); SODIUM SERUM 132 mEq/L (136-145); TOTAL PROTEIN,SERUM 8.6 gm/dL (6.0-8.3); TRIGLYCERIDES 123 mg/dL (<150)
--- NOTE | 2018-11-09 13:41 | Diagnostic Imaging Report ---
Portable chest x-ray History: Pain Allowing for portable technique the heart size is normal. No focal pulmonary parenchymal processes. No hilar or mediastinal abnormalities. Surgical changes seen within the cervical spine. Impression: No acute abnormalities.
--- NOTE | 2018-11-09 13:41 | Diagnostic Imaging Report ---
CT scan abdomen and pelvis without intravenous contrast HISTORY: Pain Total DLP equals 692 CTDI equals 13.3 Axial sections were obtained from the xiphoid process down to the pubic symphysis. Limited sections through the lower chest demonstrate coronary artery calcification and mitral valve annulus calcification. The liver exhibits a homogeneous parenchyma. No focal lesions. The spleen appears normal. Surgical clips are noted in the comfort hepatis region consistent with a prior cholecystectomy. Surgical clips also noted near the gastric fundus. Additional surgical clips and suture material noted within the mid and lower abdominal regions and upper anterior pelvis. There is an approximate 1.5 cm lesion with a calcified rim that extends off the lower pole of the right kidney. Exact etiology uncertain. Follow up/monitoring recommended. The left kidney is unremarkable. No hydronephrosis. The exam of the pelvis demonstrates preservation of normal fat planes. No abnormal soft tissue masses. No abnormal fluid collections. There is a mildly distended stool-filled rectum. A degree of fecal impaction cannot be excluded. Degenerative changes seen throughout the spine. IMPRESSION: 1. Surgical changes including prior cholecystectomy as noted above 2. 1.5 cm lesion within the lower pole the right kidney with a calcified rim. Exact etiology uncertain. Follow up/monitoring recommended. 3. Mildly distended stool-filled rectum. Findings may be associated with a degree of fecal impaction. 4. Coronary artery calcification along with atherosclerotic vascular changes
[2018-11-09] MEDS ORDERED: Levofloxacin 500mg/100mL 500 MG/100 ML BAG IV ONE ×2 (14:31→15:05)
[2018-11-09 14:55] LABS: URINE SOURCE CLEAN C
[2018-11-09 14:59] LABS: URINE BILIRUBIN NEGATIVE (NEGATIVE); URINE BLOOD MODERATE (NEGATIVE); URINE GLUCOSE (UA) >=1000 mg/dL (NEGATIVE); URINE KETONE 40 mg/dL (NEGATIVE); URINE LEUKOCYTE ESTERASE NEGATIVE (NEGATIVE); URINE MICROSCOPIC INDICATED? YES; URINE NITRATE NEGATIVE (NEGATIVE); URINE PROTEIN 100 mg/dL (NEGATIVE); URINE UROBILINOGEN 0.2 E.U./dL (0.2 - 1.0)
[2018-11-09 15:09] LABS: URINE CLARITY CLEAR (CLEAR); URINE COLOR YELLOW
[2018-11-09 15:12] LABS: URINE BACTERIA FEW /hpf (NONE SEEN); URINE EPITHELIAL CELLS FEW /lpf (FEW); URINE WBC 0-2 /hpf (0-5)
[2018-11-09] MEDS ORDERED: INSULIN HUMAN REGULAR 100 UNITS/ML UNIT SUBQ ONE ×3 (15:31→20:31)
[2018-11-09] MEDS ORDERED: INSULIN HUMAN REGULAR 100 UNITS/ML UNIT ONE ×3 (15:43→20:35)
[2018-11-09] MEDS ORDERED: GLUCAGON HCl 1 MG KIT IM PRN (18:12)
[2018-11-09] MEDS ORDERED: Dextrose 50% 50 mL Abboject IVP PRN (18:12)
[2018-11-09] MEDS ORDERED: Piperacillin Sodium/Tazobact 3.375 gm Vial IV ONE (22:37)
[2018-11-09] MEDS: D5-0.45NS 1,000 ML IV SCH (22:44)
[2018-11-09] MEDS: INSULIN LISPRO SLIDING SCALE 100 UNITS/ML UNIT SUBQ SCH (23:15)
[2018-11-09] MEDS: POLYETHYLENE GLYCOL 3350 17 GM PACK PO SCH (23:16)
[2018-11-10] MEDS ORDERED: Piperacillin Sodium/Tazobact 3.375 gm Vial IV ONE (04:08)
[2018-11-10] MEDS: Morphine Sulfate 2 mg/mL 1mL Syr IVP PRN ×4 (04:20→22:16)
[2018-11-10 04:54] VITALS: BP 170/82
[2018-11-10] MEDS: INSULIN LISPRO SLIDING SCALE 100 UNITS/ML UNIT SUBQ SCH ×4 (06:51→21:50)
[2018-11-10 07:09] LABS: ALB/GLOB RATIO 1.1 (1.0-1.8); ALBUMIN 3.8 gm/dL (3.7-5.3); ANION GAP 17.6 (7.0-16.0); BILIRUBIN,TOTAL 0.5 mg/dL (0.3-1.0); CALCIUM SERUM 9.4 mg/dL (8.6-10.3); CREATININE - SERUM 1.2 mg/dL (0.6-1.2); GFR AFRICAN-AMERICAN 57.8 ml/min (>90); GFR NON AFRICAN-AMERICAN 47.8 ml/min; POTASSIUM SERUM 3.6 mEq/L (3.5-5.1); TOTAL PROTEIN,SERUM 7.4 gm/dL (6.0-8.3)
[2018-11-10 07:10] LABS: HEMATOCRIT 42.8 % (41.0-60); HEMOGLOBIN 14.3 gm/dL (12-16); MEAN CELL VOLUME 83.4 fl (81-100); MEAN CORPUSCULAR HEMOGLOBIN 27.8 pg (27.0-31.0); MEAN CORPUSCULAR HGB CONC 33.3 pg (28.0-36.0); MEAN PLATELET VOLUME 9.2 fl; PLATELET COUNT 372 Th/cmm (150-400); RED BLOOD COUNT 5.13 Mil/cmm (3.80-5.20); RED CELL DISTRIBUTION WIDTH 14.6 % (11.5-20.0)
[2018-11-10 07:13] LABS: WHITE BLOOD COUNT 13.9 Th/cmm (4.8-10.8)
[2018-11-10 07:58] LABS: LYMPHOCYTE 10 % (20-50); MONOCYTE 12 % (2-10); NEUTROPHILS 78 % (40-80); PLATELET ESTIMATE ADEQUATE (NORMAL)
[2018-11-10] MEDS ORDERED: Magnesium Hydroxide (MOM) 30 mL UDC PO PRN (09:11)
[2018-11-10] MEDS ORDERED: SACCHAROMYCES BOULARDII 250 MG PO SCH (09:15)
[2018-11-10] MEDS ORDERED: Non-Formulary Item 1 EA (Lacosamide [Vimpat] 50 MG) PO SCH (09:15)
[2018-11-10] MEDS: POLYETHYLENE GLYCOL 3350 17 GM PACK PO SCH (09:57)
--- NOTE | 2018-11-10 09:57 | History & Physical ---
ADMIT DATE: 11/10/2018 CHIEF COMPLAINT: Abdominal pain. HISTORY OF PRESENT ILLNESS: A 68-year-old resident of [facility], has multiple medical problems, which includes CVA with left-sided weakness, diabetes mellitus, polyneuropathy, history of GERD, chronic pain syndrome, history of intestinal ischemia, has been followed by myself and my nurse practitioner, noted by nursing staff that the patient was having upper epigastric pain. The patient was initially evaluated at Emergency Room at [facility]. The patient was discharged back to facility, but the patient continues to have a significant amount of pain, and the patient was advised to be transferred to [facility]. When the patient came to [facility], it was noted that the patient had elevated lactic acid, leukocytosis and significant amount of pain. The patient was advised to be admitted in the hospital for further treatment. The patient also did have CT scan of abdomen and pelvis, which also showed a large right renal lower pole calcified lesion, approximately 1.6 cm, renal vascular calcific effusion noted. Stomach was also partially distended. Extensive abdominal aortic atherosclerotic calcification and subcentimeter retroperitoneal lymph nodes were also noted. There was evidence of presacral edema that was also noted. There was a large right abdominal fat containing lesion measuring 11.6 x 7.9 x 12.6 cm, displacing the adjacent bowel and bladder also noted. The patient is advised to be admitted in the hospital for further treatment. PAST MEDICAL HISTORY: Remarkable for: 1. Diabetes. 2. Peripheral vascular disease. 3. DJD. 4. Chronic pain syndrome. 5. Opioid dependence. 6. Anxiety, depression. 7. Hypertension. 8. Seizure disorder. MEDICATIONS AT HOME: Vimpat. Seven Plus. Protonix, Plavix, oxycodone, NovoLog insulin, Buchanan, Mylanta. Milk of magnesia, metoprolol, metformin, meclizine, Lyrica, Keppra, Januvia Florastor, multivitamin, cranberry capsule, atorvastatin, Ativan, ascorbic acid, Celexa. ALLERGIES: THE PATIENT IS ALLERGIC TO BACTRIM AND TRAZODONE. SOCIAL HISTORY: She is a resident of [facility]. No history of smoking cigarette, alcohol or drug use. FAMILY HISTORY: Remarkable for hypertension. REVIEW OF SYSTEMS: The patient continues to complain of upper abdominal pain. Denies any nausea. Denies any chest pain, shortness of breath, palpitation, fever or chills. No history of any hematemesis, hematuria, hematochezia or melena. No history of any seizure or syncopal episode. PHYSICAL EXAMINATION: GENERAL: The patient is alert, awake, lying in the bed without any acute distress. VITAL SIGNS: Temperature 97.4, pulse is 95, respiratory rate 18, blood pressure is 138/68. HEENT: Normocephalic, atraumatic. Extraocular muscles intact. Tongue was pink and coated. Absent upper and lower dentition noted. NECK: Supple, no JVD, no hepatojugular reflex. No lymphadenopathy, thyromegaly or carotid bruit. HEART: Both heart sounds are regular. No S3, no S4, no murmur. CHEST: Lung equal in expansion with no expiratory wheezing. Decreased breath sounds noted. ABDOMEN: Soft, epigastric tenderness noted. Bowel sounds are present. No cough. No palpable mass. EXTREMITIES: No edema, no cyanosis or clubbing. Peripheral pulses are +2. No calf tenderness noted. NEUROLOGIC: Alert, awake, follows commands. Decreased power throughout the upper and lower extremity noted. AVAILABLE DIAGNOSTIC DATA: White count of 18.5, hemoglobin 14.0, platelet count of 357. Sodium 132, potassium 3.8, chloride 98, CO2 of 19.1, BUN and creatinine are 22 and 0.9, glucose of 364. Lactic acid of 2.25. Urine has a protein, glucose was noted. Ketones were positive. moderate blood, 5-10 rbc's. Leukoesterase were negative. CT scan of the abdomen and pelvis report reviewed. CLINICAL IMPRESSION: 1. Upper abdominal pain. Differential diagnosis wide which includes intestinal ischemia versus gastritis and gastroesophageal reflux disease versus abdominal mass causing the problem. 2. Diabetes mellitus. 3. Hypertension. 4. Chronic pain syndrome. 5. Hyperlipidemia. 6. Anxiety and depression. 7. Degenerative joint disease. 8. Peripheral vascular disease. 9. Extensive atherosclerosis of the aorta. 10. Decline in self-care, mobility. PLAN: 1. Admit this patient to medical floor. 2. GI consult. 3. IV fluid. 4. IV antibiotic. 5. Pain management. 6. General nursing care. 7. Follow up lab. 8. Follow consult recommendation. 9. Follow appropriate home medicine reconciliation. 10. Diabetes management. 11. Follow consult recommendation. 12. Care plan reviewed and discussed with staff. JOB# [id number]
[2018-11-10] MEDS: Pantoprazole 40 mg EC Tab PO SCH (10:02)
[2018-11-10] MEDS: Insulin Glargine 100 units/ml 10ml Vial SUBQ SCH (10:02)
[2018-11-10] MEDS: D5-0.45NS 1,000 ML IV SCH ×2 (13:32→22:14)
[2018-11-10] MEDS: Multivitamin Tab PO SCH (17:45)
--- NOTE | 2018-11-10 21:55 | Consultation ---
DATE OF CONSULTATION: 11/10/2018 REASON FOR CONSULTATION: Abdominal pain. HISTORY OF PRESENT ILLNESS: This consult was obtained through the courtesy of Dr. Koroma for this 68-year-old with history of diabetes, hypertension, morbid obesity, status post gastric bypass, coronary artery disease, admitted to the hospital because of abdominal pain. Apparently, the patient has been having pain for few days. She went to [facility], had a CAT scan, was discharged home. Pain persisted, she came here. She was found to have leukocytosis and high lactic acid. The patient was admitted. GI consult was called in for further evaluation. The patient is a reasonable historian, but does not seem to be fully oriented. She complains of abdominal pain of 3 days' duration, also nausea and vomiting of 1-day duration. She denies any weight loss. She has occasional diarrhea, but no constipation, no bleeding. She is been adopted, so she does not have any family history. PAST MEDICAL HISTORY: Diabetes, hypertension, degenerative joint disease, peripheral vascular disease, chronic pain, opioid dependence, anxiety, hypertension, coronary artery disease, seizure disorder. PAST SURGICAL HISTORY: She had a gastric bypass surgery. SOCIAL HISTORY: Ex-smoker, quit 17 years ago, used to drink alcohol long time ago, non-IV drug abuser. FAMILY HISTORY: As stated above, she is adopted. ALLERGIES: SULFA AND TRAZODONE. MEDICATIONS: The patient was started on Tylenol, Celexa, Plavix, dextrose, glucose, glucagon, insulin, lacosamide, Keppra, Ativan, milk of magnesia, Antivert, Lopressor, morphine, Theragran, Zofran, Protonix, Zosyn, MiraLax, Lyrica. REVIEW OF SYSTEMS: As stated above, there is no weight loss. She has nausea and vomiting for 1 day. No bleeding. No fever. PHYSICAL EXAMINATION: GENERAL: The patient is awake, oriented to self, place, and time, in mild distress. VITAL SIGNS: Blood pressure is 89/47, heart rate is 91, respiratory rate is 20, and temperature is 97.2. HEAD AND NECK: Pupils reactive to light. Extraocular muscles are intact. Sclerae are anicteric. Conjunctivae, not pale. Oral cavity, no lesion. NECK: Supple. CHEST: Good air entry. LUNGS: Clear to auscultation. CARDIOVASCULAR SYSTEM: Regular rate and rhythm. No murmur or gallop. ABDOMEN: Soft, positive bowel sounds. Positive epigastric tenderness. EXTREMITIES: Lower extremities, no edema. CENTRAL NERVOUS SYSTEM: Grossly nonfocal. LABORATORY DATA: White count was 18.5, now down to 13.9. Rest of CBC unremarkable. PT is normal. Glucose is 418. Lactic acid was 2.25, now 3.12. Liver enzymes are normal. BNP 364. CAT scan was unremarkable even though it seems by report at [facility] that showed possible hernia with some defect. A CAT scan here showed some kidney lesion, status post cholecystectomy and distended rectum filled with stool. ASSESSMENT AND PLAN: Abdominal pain. Differential include peptic ulcer disease versus anastomotic ulcer versus gastroparesis versus pancreatitis. RECOMMENDATIONS: 1. Monitor labs. 2. Endoscopy in the morning. 3. Optimize glucose management. 4. Recheck liver enzymes and lipase. 5. If all is negative, then consider CT angiogram. Rule out mesenteric ischemia especially with the lactic acidosis. The patient has not had any colonoscopy in our system, so this is something to consider down the line. Other medical problems such as diabetes, hypertension, obesity, coronary artery disease, seizure, pain dependence, etc., as per Dr. Koroma. Thank you, Dr. Koroma, for allowing me to participate in the care of your patient. If you have any further questions, please let me know. JOB# [id number]
[2018-11-11] MEDS: INSULIN LISPRO SLIDING SCALE 100 UNITS/ML UNIT SUBQ SCH ×4 (06:39→21:49)
[2018-11-11 06:49] LABS: BASOPHILE ABSOLUTE 0.1 Th/cumm (0-0.2); EOSINOPHILE ABSOLUTE 0.1 Th/cmm (0.1-0.4); HEMATOCRIT 37.4 % (41.0-60); HEMOGLOBIN 12.2 gm/dL (12-16); LYMPHOCYTE ABSOLUTE 2.3 Th/cmm (1.5-3.0); MEAN CELL VOLUME 84.7 fl (81-100); MEAN CORPUSCULAR HEMOGLOBIN 27.7 pg (27.0-31.0); MEAN CORPUSCULAR HGB CONC 32.7 pg (28.0-36.0); MEAN PLATELET VOLUME 8.7 fl; NEUTROPHILE ABSOLUTE 7.4 Th/cmm (1.8-8.0); PLATELET COUNT 333 Th/cmm (150-400); RED BLOOD COUNT 4.42 Mil/cmm (3.80-5.20); RED CELL DISTRIBUTION WIDTH 14.7 % (11.5-20.0); WHITE BLOOD COUNT 11.9 Th/cmm (4.8-10.8)
[2018-11-11 07:01] LABS: ALB/GLOB RATIO 1.1 (1.0-1.8); ALBUMIN 3.5 gm/dL (3.7-5.3); ANION GAP 14.1 (7.0-16.0); BILIRUBIN,TOTAL 0.4 mg/dL (0.3-1.0); CARBON DIOXIDE 24.9 mEq/L (21.0-31.0); CREATININE - SERUM 1.4 mg/dL (0.6-1.2); GFR AFRICAN-AMERICAN 48.4 ml/min (>90); MAGNESIUM 2.1 mg/dL (1.9-2.7); TOTAL PROTEIN,SERUM 6.6 gm/dL (6.0-8.3)
[2018-11-11 08:21] LABS: BAND NEUTROPHILE 0 % (0-10); BASOPHIL 0 % (0-3); EOSINOPHIL 0 % (0-5); LYMPHOCYTE 17 % (20-50); MONOCYTE 16 % (2-10); NEUTROPHILS 67 % (40-80); PLATELET ESTIMATE ADEQUATE (NORMAL)
[2018-11-11] MEDS ORDERED: Meperidine 50 mg/mL 1mL Syr ONE ×2 (09:44)
--- NOTE | 2018-11-11 10:28 | Operative Report ---
DATE OF SURGERY: 11/11/2018 PROCEDURE PERFORMED: Esophagogastroduodenoscopy with biopsy. INDICATION FOR PROCEDURE: Significant abdominal pain, nausea, vomiting. This was done to rule out peptic ulcer disease versus upper GI malignancy versus erosive esophagitis. versus gastroparesis. CONSENT: Informed consent was obtained from the patient after planning benefits, risks including infection, bleeding, perforation, . ANESTHESIA USED: Demerol 37.5 mg, Versed 2 mg. PREOPERATIVE DIAGNOSES: 1. Abdominal pain. 2. Nausea and vomiting. POSTOPERATIVE DIAGNOSES: 1. Diffuse gastritis. 2. Large hiatal hernia with some compartmental effect on the stomach. DESCRIPTION OF PROCEDURE: The patient was placed in left lateral position. Upper Olympus endoscope was introduced into the mouth and advanced to the esophagus, which was intubated under direct visualization. Esophageal mucosa was examined on the way down to essentially normal. GE junction was identified at 40 cm. This led to hiatal hernia, possible paraesophageal hernia. There was some narrowing as if a ring effect about 4-5 cm down. Scope was advanced to stomach where the gastric mucosa was examined and showed diffuse gastritis and erythema involving the body and antrum. Scope was retroflexed to examine the cardia and fundus, and it showed this ring effect and a hiatal hernia. Scope was then straightened and advanced through the pylorus to the duodenum where the bulb and second part were examined, and they were both normal. Scope was withdrawn to the stomach. Same examination was repeated again without new findings, so biopsies were taken from the antrum and body for histopathology, then from the antrum for CLOtest. Scope was then withdrawn while examining the gastric and esophageal mucosa a second time. The patient tolerated the procedure well. There were no immediate postoperative complications. RECOMMENDATIONS: 1. Follow up biopsy results. 2. Treat H. pylori if positive. 3. Continue with PPI. 4. Continue with Zofran as needed. 5. If not improving, consider adding Carafate or increasing the PPI to b.i.d. Thank you Dr. Koroma for allowing me to participate in the care of the patient. If you have any further questions, please let me know. [facility]# [id number]
[2018-11-11] MEDS ORDERED: Potassium Chloride 20 mEq ER Tab PO SCH (10:30)
[2018-11-11] MEDS: Insulin Glargine 100 units/ml 10ml Vial SUBQ SCH (11:18)
[2018-11-11] MEDS: Multivitamin Tab PO SCH ×2 (11:20→19:35)
[2018-11-11] MEDS: Pantoprazole 40 mg EC Tab PO SCH (11:20)
[2018-11-11] MEDS: POLYETHYLENE GLYCOL 3350 17 GM PACK PO SCH (11:20)
[2018-11-11] MEDS: D5-0.45NS 1,000 ML IV SCH (11:22)
[2018-11-11] MEDS ORDERED: Lidocaine 2% Gel 5 mL TP ONE (13:45)
[2018-11-11] MEDS ORDERED: Midazolam 1mg/ml 2 ml vial IV ONE (13:45)
[2018-11-11] MEDS ORDERED: Potassium Chloride 20 mEq ER Tab PO ONE ×2 (15:00→21:00)
--- NOTE | 2018-11-12 00:20 | Progress Notes ---
DATE: PATIENT IDENTIFICATION: A 68-year-old female, the patient seen and examined. The patient is more alert and awake. The patient has minimal pain. The patient is scheduled to have upper endoscopy done. The patient currently denies any chest pain, nausea, vomiting. The patient had a bowel movement yesterday. She tells me that her hands are cold. PHYSICAL EXAMINATION: VITAL SIGNS: Temperature 97.3, pulse 78, respiratory rate 18, blood pressure 100/62. HEENT: No facial asymmetry. Absent dentition noted. NECK: Supple, no JVD. HEART: Regular. CHEST AND LUNGS: Equal in expansion with no expiratory wheezing. ABDOMEN: Soft. Bowel sounds are present. No palpable mass. EXTREMITIES: No edema, no cyanosis. NEUROLOGIC: Alert, awake, following commands. AVAILABLE DIAGNOSTIC DATA: White count of 11.9. Hemoglobin 12.2, platelet count 333. Potassium of 3.0, BUN and creatinine is 40 and 1.4, glucose count is reviewed. Lactic acid yesterday was 2.18, albumin of 3.5. CLINICAL IMPRESSION: 1. Abdominal pain. 2. Fecal impaction. 3. Intra-abdominal mass. 4. Diabetes mellitus. 5. Abnormal liver function tests. 6. Rule out mesenteric ischemia. 7. Degenerative joint disease. 8. Chronic pain syndrome. 9. Opiate dependence. PLAN: 1. Scheduled to have endoscopy. 2. Pain management. 3. Possible CT angio if endoscopies are unrevealing. 4. Antibiotic. 5. Replace potassium. 6. General nursing care. 7. Chronic disease management. 8. Follow lab. 9. Follow consult recommendation. 10. Care plan reviewed and discussed with staff. JOB# [id number]
[2018-11-12] MEDS: D5-0.45NS 1,000 ML IV SCH ×2 (02:01→12:33)
[2018-11-12] MEDS: Morphine Sulfate 2 mg/mL 1mL Syr IVP PRN ×4 (02:04→21:11)
[2018-11-12] MEDS: INSULIN LISPRO SLIDING SCALE 100 UNITS/ML UNIT SUBQ SCH ×4 (06:52→21:11)
[2018-11-12 06:54] LABS: % EOSINOPHILS 1.3 % (0.0-5.0); % LYMPHOCYTES 10.1 % (20.0-50.0); % MONOCYTES 7.6 % (2.0-10.0); EOSINOPHILE ABSOLUTE 0.2 Th/cmm (0.1-0.4); HEMOGLOBIN 13.4 gm/dL (12-16); LYMPHOCYTE ABSOLUTE 1.4 Th/cmm (1.5-3.0); MEAN CELL VOLUME 84.1 fl (81-100); MEAN CORPUSCULAR HEMOGLOBIN 27.5 pg (27.0-31.0); MEAN CORPUSCULAR HGB CONC 32.8 pg (28.0-36.0); MEAN PLATELET VOLUME 8.3 fl; NEUTROPHILE ABSOLUTE 10.8 Th/cmm (1.8-8.0); PLATELET COUNT 286 Th/cmm (150-400); RED BLOOD COUNT 4.87 Mil/cmm (3.80-5.20); RED CELL DISTRIBUTION WIDTH 14.5 % (11.5-20.0); WHITE BLOOD COUNT 13.4 Th/cmm (4.8-10.8)
[2018-11-12 07:10] LABS: ANION GAP 14.4 (7.0-16.0); BUN - UREA NITROGEN 21 mg/dL (7-25); CALCIUM SERUM 9.3 mg/dL (8.6-10.3); CARBON DIOXIDE 22.9 mEq/L (21.0-31.0); CHLORIDE 99 mEq/L (98-107); CREATININE - SERUM 0.8 mg/dL (0.6-1.2); GFR AFRICAN-AMERICAN > 60.0 ml/min (>90); GFR NON AFRICAN-AMERICAN > 60.0 ml/min; GLUCOSE 316 mg/dL (70-105); POTASSIUM SERUM 3.3 mEq/L (3.5-5.1); SODIUM SERUM 133 mEq/L (136-145)
[2018-11-12] MEDS: Pantoprazole 40 mg EC Tab PO SCH ×2 (08:20→16:47)
[2018-11-12] MEDS: POLYETHYLENE GLYCOL 3350 17 GM PACK PO SCH (08:21)
[2018-11-12] MEDS: Multivitamin Tab PO SCH ×2 (08:21→16:47)
[2018-11-12] MEDS: Insulin Glargine 100 units/ml 10ml Vial SUBQ SCH (08:22)
--- NOTE | 2018-11-12 11:07 | GI Progress Note ---
Subjective - Review of Systems Service Date: 11/12/18 Events since last encounter: No events Subjective: better but is still with abdominal pain Objective - Results Result Diagrams: 11/12/18 06:40 11/12/18 06:15 Recent Labs: Laboratory Last Values WBC 13.4 Th/cmm (4.8-10.8) H 11/12/18 06:40 RBC 4.87 Mil/cmm (3.80-5.20) 11/12/18 06:40 Hgb 13.4 gm/dL (12-16) 11/12/18 06:40 Hct 41.0 % (41.0-60) 11/12/18 06:40 MCV 84.1 fl (81-100) 11/12/18 06:40 MCH 27.5 pg (27.0-31.0) 11/12/18 06:40 MCHC Differential 32.8 pg (28.0-36.0) 11/12/18 06:40 RDW 14.5 % (11.5-20.0) 11/12/18 06:40 Plt Count 286 Th/cmm (150-400) 11/12/18 06:40 MPV 8.3 fl 11/12/18 06:40 Add Manual Diff YES 11/11/18 06:00 Neutrophils % 81.0 % (40.0-80.0) H 11/12/18 06:40 Band Neutrophils % 0 % (0-10) 11/11/18 06:00 Lymphocytes % 10.1 % (20.0-50.0) L 11/12/18 06:40 Monocytes % 7.6 % (2.0-10.0) 11/12/18 06:40 Eosinophils % 1.3 % (0.0-5.0) 11/12/18 06:40 Basophils % 0.0 % (0.0-2.0) 11/12/18 06:40 Neutrophils (Manual) 67 % (40-80) 11/11/18 06:00 Lymphocytes 17 % (20-50) L 11/11/18 06:00 Monocytes 16 % (2-10) H 11/11/18 06:00 Eosinophils 0 % (0-5) 11/11/18 06:00 Basophils 0 % (0-3) 11/11/18 06:00 Platelet Estimate ADEQUATE (NORMAL) 11/11/18 06:00 PT 11.3 SECONDS (9.5-11.5) 11/09/18 12:50 INR 1.09 (0.5-1.4) 11/09/18 12:50 Sodium 133 mEq/L (136-145) L 11/12/18 06:15 Potassium 3.3 mEq/L (3.5-5.1) L 11/12/18 06:15 Chloride 99 mEq/L (98-107) 11/12/18 06:15 Carbon Dioxide 22.9 mEq/L (21.0-31.0) 11/12/18 06:15 Anion Gap 14.4 (7.0-16.0) 11/12/18 06:15 BUN 21 mg/dL (7-25) 11/12/18 06:15 Creatinine 0.8 mg/dL (0.6-1.2) 11/12/18 06:15 Est GFR ( Amer) > 60.0 ml/min (>90) 11/12/18 06:15 Est GFR (Non-Af Amer) > 60.0 ml/min 11/12/18 06:15 BUN/Creatinine Ratio 26.3 11/12/18 06:15 Glucose 316 mg/dL (70-105) H 11/12/18 06:15 POC Glucose 308 MG/DL (70 - 105) H 11/12/18 06:42 Whole Bld Lactic Acid 2.18 mmol/L (0.60-1.99) H* 11/10/18 11:55 Calcium 9.3 mg/dL (8.6-10.3) 11/12/18 06:15 Magnesium 2.1 mg/dL (1.9-2.7) 11/11/18 06:00 Total Bilirubin 0.4 mg/dL (0.3-1.0) 11/11/18 06:00 AST 15 U/L (13-39) 11/11/18 06:00 ALT 12 U/L (7-52) 11/11/18 06:00 Alkaline Phosphatase 71 U/L (34-104) 11/11/18 06:00 Creatine Kinase 82 U/L (30-223) 11/09/18 12:50 Troponin I 0.04 ng/mL (0.01-0.05) 11/09/18 12:50 B-Natriuretic Peptide 364.0 pg/mL (5.0-100.0) H 11/09/18 12:50 Total Protein 6.6 gm/dL (6.0-8.3) 11/11/18 06:00 Albumin 3.5 gm/dL (3.7-5.3) L 11/11/18 06:00 Globulin 3.1 gm/dL 11/11/18 06:00 Albumin/Globulin Ratio 1.1 (1.0-1.8) 11/11/18 06:00 Triglycerides 123 mg/dL (<150) 11/09/18 12:50 Cholesterol 130 mg/dL (<200) 11/09/18 12:50 LDL Cholesterol Direct 77 mg/dL (75-193) 11/09/18 12:50 HDL Cholesterol 42 mg/dL (23-92) 11/09/18 12:50 Amylase 43 U/L (29-103) 11/09/18 12:50 Lipase 61 U/L (11-82) 11/11/18 06:00 Urine Source CLEAN C 11/09/18 14:10 Urine Color YELLOW 11/09/18 14:10 Urine Clarity CLEAR (CLEAR) 11/09/18 14:10 Urine pH 6.0 (4.6 - 8.0) 11/09/18 14:10 Ur Specific [place] 1.020 (1.005-1.030) 11/09/18 14:10 Urine Protein 100 mg/dL (NEGATIVE) H 11/09/18 14:10 Urine Glucose (UA) >=1000 mg/dL (NEGATIVE) H 11/09/18 14:10 Urine Ketones 40 mg/dL (NEGATIVE) H 11/09/18 14:10 Urine Blood MODERATE (NEGATIVE) H 11/09/18 14:10 Urine Nitrate NEGATIVE (NEGATIVE) 11/09/18 14:10 Urine Bilirubin NEGATIVE (NEGATIVE) 11/09/18 14:10 Urine Urobilinogen 0.2 E.U./dL (0.2 - 1.0) 11/09/18 14:10 Ur Leukocyte Esterase NEGATIVE (NEGATIVE) 11/09/18 14:10 Urine RBC 5-10 /hpf (0-5) H 11/09/18 14:10 Urine WBC 0-2 /hpf (0-5) 11/09/18 14:10 Ur Epithelial Cells FEW /lpf (FEW) 11/09/18 14:10 Urine Bacteria FEW /hpf (NONE SEEN) 11/09/18 14:10 - Physical Exam Vitals and I&O: Vital Signs Temp 96.9 F 11/12/18 07:57 Pulse 104 11/12/18 08:19 Resp 18 11/12/18 07:57 BP 193/93 11/12/18 08:19 Pulse Ox 96 11/12/18 07:57 Intake & Output 11/11/18 11/12/18 11/12/18 18:59 06:59 18:59 Intake Total 1035 150 240 Output Total 2 Balance 1035 150 238 Weight (lbs) 82.1 kg 82.554 kg Intake: Intake, IV Amount 1035 150 D5-0.45NS 1,000 ml @ 75 985 mls/hr IV .[id number] [facility] Rx #:[id number] Piperacillin Sodium/ 50 150 Tazobact 3.375 gm In Sodium Chloride 0.9% 50 ml @ 100 mls/hr IV Q6H [facility] Rx#:[id number] Oral 240 Output: Urine/Stool Mix 2 Other: # Voids 2 Stool Characteristics Liquid Liquid Brown Brown Green Green Weight Source Bedscale Bedscale Active Medications: Current Medications Acetaminophen (Tylenol) 650 mg PO Q6H PRN PRN Reason: Mild Pain/Headache/T above 101 Stop: 01/08/19 18:03 Clopidogrel Bisulfate (Plavix) 75 mg PO DAILY [facility] Stop: 01/09/19 08:59 Last Admin: 11/12/18 08:20 Dose: 75 mg Dextrose (D50w) 50 ml IVP PRN PRN PRN Reason: Blood Glucose less than 70 Stop: 01/08/19 18:11 Dextrose (Glutose 40%) 18.75 gm PO PRN PRN PRN Reason: Blood Glucose less than 70 Stop: 01/08/19 18:11 Glucagon (Glucagen) 1 mg IM PRN PRN PRN Reason: Blood Glucose less than 70 Stop: 01/08/19 18:11 Dextrose/Sodium Chloride (D5-0.45ns) 1,000 mls @ 75 mls/hr IV .[id number] [facility] Stop: 01/08/19 18:14 Last Admin: 11/12/18 02:01 Dose: Not Given Piperacillin Sod/Tazobactam (Sod 3.375 gm/ Sodium Chloride) 50 mls @ 100 mls/ hr IV Q6H [facility] Stop: 01/08/19 20:59 Last Admin: 11/12/18 08:23 Dose: 100 mls/hr Insulin Glargine (Lantus Insulin) 10 units SUBQ DAILY [facility] Stop: 01/09/19 09:44 Last Admin: 11/12/18 08:22 Dose: 10 units Insulin Human Lispro (Humalog Insulin Sliding Scale) 0 units SUBQ ACHS [facility]; Protocol Stop: 01/08/19 20:59 Last Admin: 11/12/18 06:52 Dose: 8 units Lacosamide (Vimpat) 50 mg PO BID [facility] Stop: 01/09/19 16:59 Last Admin: 11/12/18 08:20 Dose: 50 mg Levetiracetam (Keppra) 250 mg PO BID [facility] Stop: 01/09/19 09:14 Last Admin: 11/12/18 08:20 Dose: 250 mg Lorazepam (Ativan) 0.5 mg PO Q12HR PRN; Protocol PRN Reason: Anxiety Stop: 01/09/19 09:10 Last Admin: 11/12/18 03:58 Dose: 0.5 mg Magnesium Hydroxide (Milk Of Magnesia) 30 ml PO DAILY PRN PRN Reason: CONSTIPATION Stop: 01/09/19 09:10 Meclizine HCl (Antivert) 25 mg PO Q8HR PRN PRN Reason: Dizziness Stop: 01/09/19 09:10 Last Admin: 11/12/18 05:17 Dose: 25 mg Metoprolol Tartrate (Lopressor) 100 mg PO BID [facility] Stop: 01/09/19 09:14 Last Admin: 11/12/18 08:19 Dose: 100 mg Miscellaneous (Misc Oral Tab) 1.5 tab PO HS [facility]; Protocol Stop: 01/10/19 11:44 Last Admin: 11/11/18 21:36 Dose: 1.5 tab Morphine Sulfate (Morphine) 2 mg IVP Q4H PRN PRN Reason: Severe Pain Stop: 01/08/19 18:03 Last Admin: 11/12/18 06:43 Dose: 2 mg Multivitamins/Vitamin C (Theragran) 1 tab PO BID [facility] Stop: 01/09/19 16:59 Last Admin: 11/12/18 08:21 Dose: 1 tab Mupirocin (Bactroban Oint) 1 appl NS BID [facility] Stop: 11/15/18 17:01 Last Admin: 11/12/18 08:21 Dose: 1 appl Ondansetron HCl (Zofran) 4 mg IV Q6HR PRN PRN Reason: nausea nad vomiting Stop: 01/08/19 18:14 Last Admin: 11/12/18 03:21 Dose: 4 mg Pantoprazole Sodium (Protonix) 40 mg PO BID [facility] Stop: 01/11/19 16:59 Polyethylene Glycol (Miralax) 17 gm PO DAILY [facility] Stop: 01/08/19 18:14 Last Admin: 11/12/18 08:21 Dose: 17 gm Pregabalin (Lyrica) 50 mg PO TID [facility] Stop: 01/09/19 09:14 Last Admin: 11/12/18 08:19 Dose: 50 mg General: Alert, No acute distress Neck: Supple Cardiovascular: Regular rate, Normal S1, Normal S2 Lungs: Clear to auscultation Abdomen: Bowel sounds, Soft, Tender (epigastric) - Procedures Procedures: Procedures Procedure Code Date EGD BIOPSY SINGLE/MULTIPLE 83468 08/05/17 EXCISION OF STOMACH, ENDO, DIAGN [id number] 08/05/17 Assessment/Plan - Assessment Assessment: Abdominal pain - Plan Plan: Abdominal pain Most likrly due to gastritis and possible gastroparesis Increase protonix to BID If not helping then may add Carafate or reglan If still symptomatic, then CTA r/o mesenteric ischemia Supplement K
[2018-11-12] MEDS ORDERED: Potassium Chloride 20 mEq ER Tab PO ONE (13:00)
[2018-11-12] MEDS ORDERED: Probiotic Screen MC PRN (15:34)
[2018-11-12] MEDS: Lactobacillus Rhamnosus GG 15 Billion CFU CAP.SPRINK PO SCH (16:47)
--- NOTE | 2018-11-13 01:08 | Progress Notes ---
DATE: 11/12/2018 SUBJECTIVE: The patient was admitted to [facility], room #29 bed B. The patient is seen and examined. The patient is lying in the bed. The patient has complained of epigastric abdominal pain. The patient did have upper endoscopy with findings that has been reviewed. Weight Loss Consultant has seen the patient and recommended to our currenter's management and if no improvement recommended to have a CT angio. The patient currently denies any fevers, chills, chest pain, short of breath. OBJECTIVE: On exam, VITAL SIGNS: Temperature 97, pulse is 64, respiratory rate 18, blood pressure 110/60. HEENT: No facial asymmetry. Poor dentition noted. NECK: Supple, no JVD. HEART: Both heart sounds were regular. CHEST AND LUNGS: Equal in expansion. No expiratory wheezing. ABDOMEN: Soft. Significant tenderness in the epigastric area noted. Bowel sounds are present. No palpable mass. EXTREMITIES: No edema. NEUROLOGIC: Unremarkable left-sided weakness. AVAILABLE DIAGNOSTIC DATA: Has been reviewed. CLINICAL IMPRESSION: 1. Hypokalemia. 2. Abdominal pain. 3. Gastritis and gastroparesis. 4. Chronic pain syndrome. 5. Diabetes mellitus. 6. Peripheral vascular disease. PLAN: 1. Replace potassium. 2. IV fluid. 3. Liquid diet. 4. Pain management. 5. General nursing care. 6. Symptomatic therapy. 7. Chronic disease management. 8. Follow lab. 9. If no improvement, the patient will have a CT angiogram of mesenteric arteries. 10. Care plan reviewed and discussed with the patient and assigned nurse. JOB# [id number]
[2018-11-13] MEDS: D5-0.45NS 1,000 ML IV SCH ×3 (01:17→20:43)
[2018-11-13] MEDS: Morphine Sulfate 2 mg/mL 1mL Syr IVP PRN ×2 (02:23→08:45)
[2018-11-13] MEDS: INSULIN LISPRO SLIDING SCALE 100 UNITS/ML UNIT SUBQ SCH ×4 (06:52→20:49)
[2018-11-13] MEDS: Pantoprazole 40 mg EC Tab PO SCH ×2 (07:46→16:50)
[2018-11-13] MEDS: POLYETHYLENE GLYCOL 3350 17 GM PACK PO SCH (09:56)
[2018-11-13] MEDS: Multivitamin Tab PO SCH ×2 (09:56→16:50)
--- NOTE | 2018-11-13 10:03 | GI Progress Note ---
Subjective - Review of Systems Service Date: 11/13/18 Events since last encounter: No events Subjective: better but is still with abdominal pain Objective - Results Result Diagrams: 11/12/18 06:40 11/12/18 06:15 Recent Labs: Laboratory Last Values WBC 13.4 Th/cmm (4.8-10.8) H 11/12/18 06:40 RBC 4.87 Mil/cmm (3.80-5.20) 11/12/18 06:40 Hgb 13.4 gm/dL (12-16) 11/12/18 06:40 Hct 41.0 % (41.0-60) 11/12/18 06:40 MCV 84.1 fl (81-100) 11/12/18 06:40 MCH 27.5 pg (27.0-31.0) 11/12/18 06:40 MCHC Differential 32.8 pg (28.0-36.0) 11/12/18 06:40 RDW 14.5 % (11.5-20.0) 11/12/18 06:40 Plt Count 286 Th/cmm (150-400) 11/12/18 06:40 MPV 8.3 fl 11/12/18 06:40 Add Manual Diff YES 11/11/18 06:00 Neutrophils % 81.0 % (40.0-80.0) H 11/12/18 06:40 Band Neutrophils % 0 % (0-10) 11/11/18 06:00 Lymphocytes % 10.1 % (20.0-50.0) L 11/12/18 06:40 Monocytes % 7.6 % (2.0-10.0) 11/12/18 06:40 Eosinophils % 1.3 % (0.0-5.0) 11/12/18 06:40 Basophils % 0.0 % (0.0-2.0) 11/12/18 06:40 Neutrophils (Manual) 67 % (40-80) 11/11/18 06:00 Lymphocytes 17 % (20-50) L 11/11/18 06:00 Monocytes 16 % (2-10) H 11/11/18 06:00 Eosinophils 0 % (0-5) 11/11/18 06:00 Basophils 0 % (0-3) 11/11/18 06:00 Platelet Estimate ADEQUATE (NORMAL) 11/11/18 06:00 PT 11.3 SECONDS (9.5-11.5) 11/09/18 12:50 INR 1.09 (0.5-1.4) 11/09/18 12:50 Sodium 133 mEq/L (136-145) L 11/12/18 06:15 Potassium 3.3 mEq/L (3.5-5.1) L 11/12/18 06:15 Chloride 99 mEq/L (98-107) 11/12/18 06:15 Carbon Dioxide 22.9 mEq/L (21.0-31.0) 11/12/18 06:15 Anion Gap 14.4 (7.0-16.0) 11/12/18 06:15 BUN 21 mg/dL (7-25) 11/12/18 06:15 Creatinine 0.8 mg/dL (0.6-1.2) 11/12/18 06:15 Est GFR ( Amer) > 60.0 ml/min (>90) 11/12/18 06:15 Est GFR (Non-Af Amer) > 60.0 ml/min 11/12/18 06:15 BUN/Creatinine Ratio 26.3 11/12/18 06:15 Glucose 316 mg/dL (70-105) H 11/12/18 06:15 POC Glucose 275 MG/DL (70 - 105) H 11/13/18 06:43 Whole Bld Lactic Acid 2.18 mmol/L (0.60-1.99) H* 11/10/18 11:55 Calcium 9.3 mg/dL (8.6-10.3) 11/12/18 06:15 Magnesium 2.1 mg/dL (1.9-2.7) 11/11/18 06:00 Total Bilirubin 0.4 mg/dL (0.3-1.0) 11/11/18 06:00 AST 15 U/L (13-39) 11/11/18 06:00 ALT 12 U/L (7-52) 11/11/18 06:00 Alkaline Phosphatase 71 U/L (34-104) 11/11/18 06:00 Creatine Kinase 82 U/L (30-223) 11/09/18 12:50 Troponin I 0.04 ng/mL (0.01-0.05) 11/09/18 12:50 B-Natriuretic Peptide 364.0 pg/mL (5.0-100.0) H 11/09/18 12:50 Total Protein 6.6 gm/dL (6.0-8.3) 11/11/18 06:00 Albumin 3.5 gm/dL (3.7-5.3) L 11/11/18 06:00 Globulin 3.1 gm/dL 11/11/18 06:00 Albumin/Globulin Ratio 1.1 (1.0-1.8) 11/11/18 06:00 Triglycerides 123 mg/dL (<150) 11/09/18 12:50 Cholesterol 130 mg/dL (<200) 11/09/18 12:50 LDL Cholesterol Direct 77 mg/dL (75-193) 11/09/18 12:50 HDL Cholesterol 42 mg/dL (23-92) 11/09/18 12:50 Amylase 43 U/L (29-103) 11/09/18 12:50 Lipase 61 U/L (11-82) 11/11/18 06:00 Urine Source CLEAN C 11/09/18 14:10 Urine Color YELLOW 11/09/18 14:10 Urine Clarity CLEAR (CLEAR) 11/09/18 14:10 Urine pH 6.0 (4.6 - 8.0) 11/09/18 14:10 Ur Specific [place] 1.020 (1.005-1.030) 11/09/18 14:10 Urine Protein 100 mg/dL (NEGATIVE) H 11/09/18 14:10 Urine Glucose (UA) >=1000 mg/dL (NEGATIVE) H 11/09/18 14:10 Urine Ketones 40 mg/dL (NEGATIVE) H 11/09/18 14:10 Urine Blood MODERATE (NEGATIVE) H 11/09/18 14:10 Urine Nitrate NEGATIVE (NEGATIVE) 11/09/18 14:10 Urine Bilirubin NEGATIVE (NEGATIVE) 11/09/18 14:10 Urine Urobilinogen 0.2 E.U./dL (0.2 - 1.0) 11/09/18 14:10 Ur Leukocyte Esterase NEGATIVE (NEGATIVE) 11/09/18 14:10 Urine RBC 5-10 /hpf (0-5) H 11/09/18 14:10 Urine WBC 0-2 /hpf (0-5) 11/09/18 14:10 Ur Epithelial Cells FEW /lpf (FEW) 11/09/18 14:10 Urine Bacteria FEW /hpf (NONE SEEN) 11/09/18 14:10 Helicobacter pylori Ab NEGATIVE (NEGATIVE) 11/11/18 09:55 - Physical Exam Vitals and I&O: Vital Signs Temp 98 F 11/13/18 08:00 Pulse 89 11/13/18 08:00 Resp 18 11/13/18 08:00 BP 141/86 11/13/18 08:00 Pulse Ox 98 11/13/18 08:00 Intake & Output 11/12/18 11/13/18 11/13/18 18:59 06:59 18:59 Intake Total 340 1855 Output Total 2 Balance 338 1855 Weight (lbs) 82.554 kg 82.554 kg Intake: Intake, IV Amount 100 1005 D5-0.45NS 1,000 ml @ 75 955 mls/hr IV .[id number] [facility] Rx #:[id number] Piperacillin Sodium/ 100 50 Tazobact 3.375 gm In Sodium Chloride 0.9% 50 ml @ 100 mls/hr IV Q6H [facility] Rx#:[id number] Oral 240 850 Output: Urine/Stool Mix 2 Other: # Voids 2 3 Stool Characteristics Liquid Liquid Brown Brown Green Green Weight Source Bedscale Bedscale Active Medications: Current Medications Acetaminophen (Tylenol) 650 mg PO Q6H PRN PRN Reason: Mild Pain/Headache/T above 101 Stop: 01/08/19 18:03 Clopidogrel Bisulfate (Plavix) 75 mg PO DAILY [facility] Stop: 01/09/19 08:59 Last Admin: 11/12/18 08:20 Dose: 75 mg Dextrose (D50w) 50 ml IVP PRN PRN PRN Reason: Blood Glucose less than 70 Stop: 01/08/19 18:11 Dextrose (Glutose 40%) 18.75 gm PO PRN PRN PRN Reason: Blood Glucose less than 70 Stop: 01/08/19 18:11 Glucagon (Glucagen) 1 mg IM PRN PRN PRN Reason: Blood Glucose less than 70 Stop: 01/08/19 18:11 Dextrose/Sodium Chloride (D5-0.45ns) 1,000 mls @ 75 mls/hr IV .[id number] [facility] Stop: 01/08/19 18:14 Last Admin: 11/13/18 01:17 Dose: 75 mls/hr Piperacillin Sod/Tazobactam (Sod 3.375 gm/ Sodium Chloride) 50 mls @ 100 mls/ hr IV Q6H [facility] Stop: 01/08/19 20:59 Last Admin: 11/13/18 02:23 Dose: 100 mls/hr Insulin Glargine (Lantus Insulin) 10 units SUBQ DAILY [facility] Stop: 01/09/19 09:44 Last Admin: 11/12/18 08:22 Dose: 10 units Insulin Human Lispro (Humalog Insulin Sliding Scale) 0 units SUBQ ACHS [facility]; Protocol Stop: 01/08/19 20:59 Last Admin: 11/13/18 06:52 Dose: 6 units Lacosamide (Vimpat) 50 mg PO BID [facility] Stop: 01/09/19 16:59 Last Admin: 11/12/18 16:46 Dose: 50 mg Lactobacillus Rhamnosus (Culturelle 15b) 1 each PO DAILY [facility] Stop: 01/11/19 15:59 Last Admin: 11/12/18 16:47 Dose: 1 each Levetiracetam (Keppra) 250 mg PO BID [facility] Stop: 01/09/19 09:14 Last Admin: 11/12/18 16:47 Dose: 250 mg Lorazepam (Ativan) 0.5 mg PO Q12HR PRN; Protocol PRN Reason: Anxiety Stop: 01/09/19 09:10 Last Admin: 11/12/18 03:58 Dose: 0.5 mg Magnesium Hydroxide (Milk Of Magnesia) 30 ml PO DAILY PRN PRN Reason: CONSTIPATION Stop: 01/09/19 09:10 Meclizine HCl (Antivert) 25 mg PO Q8HR PRN PRN Reason: Dizziness Stop: 01/09/19 09:10 Last Admin: 11/12/18 05:17 Dose: 25 mg Metoprolol Tartrate (Lopressor) 100 mg PO BID [facility] Stop: 01/09/19 09:14 Last Admin: 11/12/18 16:47 Dose: 100 mg Miscellaneous (Misc Oral Tab) 1.5 tab PO HS [facility]; Protocol Stop: 01/10/19 11:44 Last Admin: 11/12/18 21:10 Dose: Not Given Miscellaneous (Probiotic Screen) 1 ea MC PRN PRN PRN Reason: PROTOCOL Stop: 01/11/19 15:33 Morphine Sulfate (Morphine) 2 mg IVP Q4H PRN PRN Reason: Severe Pain Stop: 01/08/19 18:03 Last Admin: 11/13/18 08:45 Dose: 2 mg Multivitamins/Vitamin C (Theragran) 1 tab PO BID [facility] Stop: 01/09/19 16:59 Last Admin: 11/12/18 16:47 Dose: 1 tab Mupirocin (Bactroban Oint) 1 appl NS BID [facility] Stop: 11/15/18 17:01 Last Admin: 11/12/18 16:48 Dose: 1 appl Ondansetron HCl (Zofran) 4 mg IV Q6HR PRN PRN Reason: nausea nad vomiting Stop: 01/08/19 18:14 Last Admin: 11/13/18 02:30 Dose: 4 mg Pantoprazole Sodium (Protonix) 40 mg PO BIDAC [facility] Stop: 01/11/19 16:29 Last Admin: 11/13/18 07:46 Dose: 40 mg Polyethylene Glycol (Miralax) 17 gm PO DAILY [facility] Stop: 01/08/19 18:14 Last Admin: 11/12/18 08:21 Dose: 17 gm Pregabalin (Lyrica) 50 mg PO TID [facility] Stop: 01/09/19 09:14 Last Admin: 11/12/18 21:10 Dose: Not Given General: Alert, No acute distress Neck: Supple Cardiovascular: Regular rate, Normal S1, Normal S2 Lungs: Clear to auscultation Abdomen: Bowel sounds, Soft, Tender (epigastric) - Procedures Procedures: Procedures Procedure Code Date EGD BIOPSY SINGLE/MULTIPLE 76626 08/05/17 EXCISION OF STOMACH, ENDO, DIAGN [id number] 08/05/17 Assessment/Plan - Assessment Assessment: Abdominal pain - Plan Plan: Abdominal pain Most likrly due to gastritis and possible gastroparesis protonix was increased to BID add Carafate If still symptomatic, then CTA r/o mesenteric ischemia
[2018-11-13] MEDS: Insulin Glargine 100 units/ml 10ml Vial SUBQ SCH (10:15)
[2018-11-13] MEDS: Lactobacillus Rhamnosus GG 15 Billion CFU CAP.SPRINK PO SCH (10:16)
--- NOTE | 2018-11-13 20:02 | Progress Notes ---
DATE: 11/13/2018 IDENTIFICATION: A 68-year-old female. SUBJECTIVE: The patient seen and examined. The patient is complaining of upper abdominal pain. The patient stated that pain has not relieved. Continues to have elevated blood sugar. Currently on IV fluid. The patient is also on antiplatelet therapy. The patient currently denies any chest pain, abdominal pain, nausea, vomiting, diarrhea. The patient denies any hematemesis, hematochezia, or melena. PHYSICAL EXAMINATION: VITAL SIGNS: Temperature 98, pulse is 89, respiratory rate 18, blood pressure 141/86. HEENT: No facial asymmetry. NECK: Supple, no JVD. HEART: Both heart sounds are regular. CHEST AND LUNGS: Equal in expansion with no expiratory wheezing. ABDOMEN: Soft. No palpable mass. Epigastric tenderness noted. EXTREMITIES: No edema, no cyanosis. NEUROLOGIC: Alert, awake, follows commands. Decreased power throughout the upper and lower extremity, the left-sided weakness also noted. CLINICAL IMPRESSION: 1. Persistent abdominal pain. No significant improvement. Currently on proton pump inhibitor with Carafate. 2. Diabetes mellitus with elevated blood sugar. 3. Poor p.o. intake. 4. Hypertension. 5. Hypothyroidism. 6. Seizure disorder. 7. Chronic pain syndrome. 8. Debility. 9. Status post cerebrovascular accident. PLAN: 1. We will discuss with grades 1 [address] angio considering the patient has no significant improvement. 2. Decrease IV fluid and increase insulin therapy for now. 3. Continue to provide diabetes management. 4. General nursing care and nutritional support. 5. Symptomatic therapy. 6. Medication management along with chronic disease management. 7. Care plan has been reviewed and discussed with RN. JOB# [id number]
[2018-11-14 05:17] LABS: % BASOPHILS 0.5 % (0.0-2.0); % EOSINOPHILS 2.9 % (0.0-5.0); % LYMPHOCYTES 28.5 % (20.0-50.0); % NEUTROPHILS 55.1 % (40.0-80.0); BASOPHILE ABSOLUTE 0.1 Th/cumm (0-0.2); EOSINOPHILE ABSOLUTE 0.3 Th/cmm (0.1-0.4); HEMATOCRIT 38.5 % (41.0-60); HEMOGLOBIN 12.5 gm/dL (12-16); MEAN CELL VOLUME 84.7 fl (81-100); MEAN CORPUSCULAR HEMOGLOBIN 27.6 pg (27.0-31.0); MEAN CORPUSCULAR HGB CONC 32.5 pg (28.0-36.0); MEAN PLATELET VOLUME 8.8 fl; MONOCYTE ABSOLUTE 1.4 Th/cmm (0.3-1.0); NEUTROPHILE ABSOLUTE 5.7 Th/cmm (1.8-8.0); PLATELET COUNT 331 Th/cmm (150-400); RED BLOOD COUNT 4.54 Mil/cmm (3.80-5.20); RED CELL DISTRIBUTION WIDTH 14.5 % (11.5-20.0); WHITE BLOOD COUNT 10.5 Th/cmm (4.8-10.8)
[2018-11-14 05:44] LABS: ALB/GLOB RATIO 1.2 (1.0-1.8); ALBUMIN 3.6 gm/dL (3.7-5.3); ALKALINE PHOSPHATASE 68 U/L (34-104); ANION GAP 10.8 (7.0-16.0); BILIRUBIN,TOTAL 0.4 mg/dL (0.3-1.0); BUN - UREA NITROGEN 20 mg/dL (7-25); CALCIUM SERUM 9.3 mg/dL (8.6-10.3); CARBON DIOXIDE 26.5 mEq/L (21.0-31.0); CHLORIDE 102 mEq/L (98-107); CREATININE - SERUM 0.9 mg/dL (0.6-1.2); GFR AFRICAN-AMERICAN > 60.0 ml/min (>90); GFR NON AFRICAN-AMERICAN > 60.0 ml/min; GLUCOSE 178 mg/dL (70-105); POTASSIUM SERUM 3.3 mEq/L (3.5-5.1); SGOT 18 U/L (13-39); SGPT/ALT 14 U/L (7-52); SODIUM SERUM 136 mEq/L (136-145); TOTAL PROTEIN,SERUM 6.5 gm/dL (6.0-8.3)
[2018-11-14] MEDS: INSULIN LISPRO SLIDING SCALE 100 UNITS/ML UNIT SUBQ SCH ×4 (06:44→20:16)
[2018-11-14 07:00] LABS: INR 1.02 (0.5-1.4); PROTHROMBIN TIME (TEST) 10.6 SECONDS (9.5-11.5)
[2018-11-14] MEDS: POLYETHYLENE GLYCOL 3350 17 GM PACK PO SCH (09:00)
[2018-11-14] MEDS: Lactobacillus Rhamnosus GG 15 Billion CFU CAP.SPRINK PO SCH (09:01)
[2018-11-14] MEDS: Multivitamin Tab PO SCH ×2 (09:02→16:51)
[2018-11-14] MEDS: Insulin Glargine 100 units/ml 10ml Vial SUBQ SCH (09:11)
[2018-11-14] MEDS: Pantoprazole 40 mg EC Tab PO SCH ×2 (09:14→16:51)
--- NOTE | 2018-11-14 10:33 | GI Progress Note ---
Subjective - Review of Systems Service Date: 11/14/18 Events since last encounter: Better Subjective: better but is still with abdominal pain even though less Objective - Results Result Diagrams: 11/14/18 04:40 11/14/18 04:40 Recent Labs: Laboratory Last Values WBC 10.5 Th/cmm (4.8-10.8) 11/14/18 04:40 RBC 4.54 Mil/cmm (3.80-5.20) 11/14/18 04:40 Hgb 12.5 gm/dL (12-16) 11/14/18 04:40 Hct 38.5 % (41.0-60) L 11/14/18 04:40 MCV 84.7 fl (81-100) 11/14/18 04:40 MCH 27.6 pg (27.0-31.0) 11/14/18 04:40 MCHC Differential 32.5 pg (28.0-36.0) 11/14/18 04:40 RDW 14.5 % (11.5-20.0) 11/14/18 04:40 Plt Count 331 Th/cmm (150-400) 11/14/18 04:40 MPV 8.8 fl 11/14/18 04:40 Add Manual Diff YES 11/11/18 06:00 Neutrophils % 55.1 % (40.0-80.0) 11/14/18 04:40 Band Neutrophils % 0 % (0-10) 11/11/18 06:00 Lymphocytes % 28.5 % (20.0-50.0) 11/14/18 04:40 Monocytes % 13.0 % (2.0-10.0) H 11/14/18 04:40 Eosinophils % 2.9 % (0.0-5.0) 11/14/18 04:40 Basophils % 0.5 % (0.0-2.0) 11/14/18 04:40 Neutrophils (Manual) 67 % (40-80) 11/11/18 06:00 Lymphocytes 17 % (20-50) L 11/11/18 06:00 Monocytes 16 % (2-10) H 11/11/18 06:00 Eosinophils 0 % (0-5) 11/11/18 06:00 Basophils 0 % (0-3) 11/11/18 06:00 Platelet Estimate ADEQUATE (NORMAL) 11/11/18 06:00 PT 10.6 SECONDS (9.5-11.5) 11/14/18 06:40 INR 1.02 (0.5-1.4) 11/14/18 06:40 Sodium 136 mEq/L (136-145) 11/14/18 04:40 Potassium 3.3 mEq/L (3.5-5.1) L 11/14/18 04:40 Chloride 102 mEq/L (98-107) 11/14/18 04:40 Carbon Dioxide 26.5 mEq/L (21.0-31.0) 11/14/18 04:40 Anion Gap 10.8 (7.0-16.0) 11/14/18 04:40 BUN 20 mg/dL (7-25) 11/14/18 04:40 Creatinine 0.9 mg/dL (0.6-1.2) 11/14/18 04:40 Est GFR ( Amer) > 60.0 ml/min (>90) 11/14/18 04:40 Est GFR (Non-Af Amer) > 60.0 ml/min 11/14/18 04:40 BUN/Creatinine Ratio 22.2 11/14/18 04:40 Glucose 178 mg/dL (70-105) H 11/14/18 04:40 POC Glucose 176 MG/DL (70 - 105) H 11/14/18 06:42 Whole Bld Lactic Acid 2.18 mmol/L (0.60-1.99) H* 11/10/18 11:55 Calcium 9.3 mg/dL (8.6-10.3) 11/14/18 04:40 Magnesium 2.1 mg/dL (1.9-2.7) 11/11/18 06:00 Total Bilirubin 0.4 mg/dL (0.3-1.0) 11/14/18 04:40 AST 18 U/L (13-39) 11/14/18 04:40 ALT 14 U/L (7-52) 11/14/18 04:40 Alkaline Phosphatase 68 U/L (34-104) 11/14/18 04:40 Creatine Kinase 82 U/L (30-223) 11/09/18 12:50 Troponin I 0.04 ng/mL (0.01-0.05) 11/09/18 12:50 B-Natriuretic Peptide 364.0 pg/mL (5.0-100.0) H 11/09/18 12:50 Total Protein 6.5 gm/dL (6.0-8.3) 11/14/18 04:40 Albumin 3.6 gm/dL (3.7-5.3) L 11/14/18 04:40 Globulin 2.9 gm/dL 11/14/18 04:40 Albumin/Globulin Ratio 1.2 (1.0-1.8) 11/14/18 04:40 Triglycerides 123 mg/dL (<150) 11/09/18 12:50 Cholesterol 130 mg/dL (<200) 11/09/18 12:50 LDL Cholesterol Direct 77 mg/dL (75-193) 11/09/18 12:50 HDL Cholesterol 42 mg/dL (23-92) 11/09/18 12:50 Amylase 43 U/L (29-103) 11/09/18 12:50 Lipase 61 U/L (11-82) 11/11/18 06:00 Urine Source CLEAN C 11/09/18 14:10 Urine Color YELLOW 11/09/18 14:10 Urine Clarity CLEAR (CLEAR) 11/09/18 14:10 Urine pH 6.0 (4.6 - 8.0) 11/09/18 14:10 Ur Specific Fiatt 1.020 (1.005-1.030) 11/09/18 14:10 Urine Protein 100 mg/dL (NEGATIVE) H 11/09/18 14:10 Urine Glucose (UA) >=1000 mg/dL (NEGATIVE) H 11/09/18 14:10 Urine Ketones 40 mg/dL (NEGATIVE) H 11/09/18 14:10 Urine Blood MODERATE (NEGATIVE) H 11/09/18 14:10 Urine Nitrate NEGATIVE (NEGATIVE) 11/09/18 14:10 Urine Bilirubin NEGATIVE (NEGATIVE) 11/09/18 14:10 Urine Urobilinogen 0.2 E.U./dL (0.2 - 1.0) 11/09/18 14:10 Ur Leukocyte Esterase NEGATIVE (NEGATIVE) 11/09/18 14:10 Urine RBC 5-10 /hpf (0-5) H 11/09/18 14:10 Urine WBC 0-2 /hpf (0-5) 11/09/18 14:10 Ur Epithelial Cells FEW /lpf (FEW) 11/09/18 14:10 Urine Bacteria FEW /hpf (NONE SEEN) 11/09/18 14:10 Helicobacter pylori Ab NEGATIVE (NEGATIVE) 11/11/18 09:55 - Physical Exam Vitals and I&O: Vital Signs Temp 97.6 F 11/14/18 08:00 Pulse 78 11/14/18 09:00 Resp 19 11/14/18 08:00 BP 134/62 11/14/18 09:00 Pulse Ox 99 11/14/18 08:00 Intake & Output 11/13/18 11/14/18 11/14/18 18:59 06:59 18:59 Intake Total 580 487 550 Balance 580 487 550 Weight (lbs) 82.554 kg 82.554 kg Intake: Intake, IV Amount 100 487 D5-0.45NS 1,000 ml @ 60 437 mls/hr IV .[id number] [facility] Rx #:[id number] Piperacillin Sodium/ 100 50 Tazobact 3.375 gm In Sodium Chloride 0.9% 50 ml @ 100 mls/hr IV Q6H [facility] Rx#:[id number] Oral 480 550 Other: # Voids 4 2 # Bowel Movements 1 Stool Characteristics Liquid Liquid Brown Brown Green Green Weight Source Bedscale Bedscale Active Medications: Current Medications Acetaminophen (Tylenol) 650 mg PO Q6H PRN PRN Reason: Mild Pain/Headache/T above 101 Stop: 01/08/19 18:03 Last Admin: 11/13/18 16:50 Dose: 650 mg Clopidogrel Bisulfate (Plavix) 75 mg PO DAILY [facility] Stop: 01/09/19 08:59 Last Admin: 11/14/18 09:00 Dose: 75 mg Dextrose (D50w) 50 ml IVP PRN PRN PRN Reason: Blood Glucose less than 70 Stop: 01/08/19 18:11 Dextrose (Glutose 40%) 18.75 gm PO PRN PRN PRN Reason: Blood Glucose less than 70 Stop: 01/08/19 18:11 Glucagon (Glucagen) 1 mg IM PRN PRN PRN Reason: Blood Glucose less than 70 Stop: 01/08/19 18:11 Piperacillin Sod/Tazobactam (Sod 3.375 gm/ Sodium Chloride) 50 mls @ 100 mls/ hr IV Q6H [facility] Stop: 01/08/19 20:59 Last Admin: 11/14/18 09:36 Dose: Not Given Dextrose/Sodium Chloride (D5-0.45ns) 1,000 mls @ 60 mls/hr IV .[id number] [facility] Stop: 01/12/19 11:59 Last Admin: 11/13/18 20:43 Dose: 60 mls/hr Insulin Glargine (Lantus Insulin) 16 units SUBQ DAILY EREN Stop: 01/13/19 08:59 Last Admin: 11/14/18 09:11 Dose: 16 units Insulin Human Lispro (Humalog Insulin Sliding Scale) 0 units SUBQ ACHS [facility]; Protocol Stop: 01/08/19 20:59 Last Admin: 11/14/18 06:44 Dose: 2 units Lacosamide (Vimpat) 50 mg PO BID [facility] Stop: 01/09/19 16:59 Last Admin: 11/14/18 09:00 Dose: 50 mg Lactobacillus Rhamnosus (Culturelle 15b) 1 each PO DAILY [facility] Stop: 01/11/19 15:59 Last Admin: 11/14/18 09:01 Dose: 1 each Levetiracetam (Keppra) 250 mg PO BID [facility] Stop: 01/09/19 09:14 Last Admin: 11/14/18 09:00 Dose: 250 mg Lorazepam (Ativan) 0.5 mg PO Q12HR PRN; Protocol PRN Reason: Anxiety Stop: 01/09/19 09:10 Last Admin: 11/12/18 03:58 Dose: 0.5 mg Magnesium Hydroxide (Milk Of Magnesia) 30 ml PO DAILY PRN PRN Reason: CONSTIPATION Stop: 01/09/19 09:10 Meclizine HCl (Antivert) 25 mg PO Q8HR PRN PRN Reason: Dizziness Stop: 01/09/19 09:10 Last Admin: 11/12/18 05:17 Dose: 25 mg Metoprolol Tartrate (Lopressor) 100 mg PO BID [facility] Stop: 01/09/19 09:14 Last Admin: 11/14/18 09:00 Dose: 100 mg Miscellaneous (Misc Oral Tab) 1.5 tab PO HS [facility]; Protocol Stop: 01/10/19 11:44 Last Admin: 11/13/18 21:01 Dose: 1.5 tab Miscellaneous (Probiotic Screen) 1 ea MC PRN PRN PRN Reason: PROTOCOL Stop: 01/11/19 15:33 Morphine Sulfate (Morphine) 2 mg IVP Q4H PRN PRN Reason: Severe Pain Stop: 01/08/19 18:03 Last Admin: 11/13/18 08:45 Dose: 2 mg Multivitamins/Vitamin C (Theragran) 1 tab PO BID [facility] Stop: 01/09/19 16:59 Last Admin: 11/14/18 09:02 Dose: 1 tab Mupirocin (Bactroban Oint) 1 appl NS BID [facility] Stop: 11/15/18 17:01 Last Admin: 11/14/18 09:11 Dose: 1 appl Ondansetron HCl (Zofran) 4 mg IV Q6HR PRN PRN Reason: nausea nad vomiting Stop: 01/08/19 18:14 Last Admin: 11/13/18 02:30 Dose: 4 mg Pantoprazole Sodium (Protonix) 40 mg PO BIDAC [facility] Stop: 01/11/19 16:29 Last Admin: 11/14/18 09:14 Dose: 40 mg Polyethylene Glycol (Miralax) 17 gm PO DAILY [facility] Stop: 01/08/19 18:14 Last Admin: 11/14/18 09:00 Dose: 17 gm Pregabalin (Lyrica) 50 mg PO TID [facility] Stop: 01/09/19 09:14 Last Admin: 11/14/18 09:01 Dose: 50 mg Sucralfate (Carafate) 1 gm PO TID [facility] Stop: 01/12/19 13:59 Last Admin: 11/14/18 09:02 Dose: 1 gm General: Alert, No acute distress Neck: Supple Cardiovascular: Regular rate, Normal S1, Normal S2 Lungs: Clear to auscultation Abdomen: Bowel sounds, Soft, Tender (epigastric) - Procedures Procedures: Procedures Procedure Code Date EGD BIOPSY SINGLE/MULTIPLE 89888 08/05/17 EXCISION OF STOMACH, ENDO, DIAGN [id number] 08/05/17 Assessment/Plan - Assessment Assessment: Abdominal pain - Plan Plan: Abdominal pain Most likely due to gastritis and possible gastroparesis Protonix was increased to BID and Carafate If still symptomatic, then CTA r/o mesenteric ischemia
[2018-11-14] MEDS ORDERED: Lactobacillus Rhamnosus GG 15 Billion CFU CAP.SPRINK PO SCH (12:00)
[2018-11-14] MEDS ORDERED: IOHEXOL 350mgI/mL 150mL IV ONE (12:00)
--- NOTE | 2018-11-14 14:30 | Diagnostic Imaging Report ---
Portable chest x-ray HISTORY: Shortness of breath, vascular catheter placement Compared to prior exam of November 09, 2018, a right-sided vascular catheter has been inserted. The tip is in the region of the splenic vena cava. Heart size appears somewhat generous. No acute focal pulmonary processes. Surgical changes seen within the cervical spine. IMPRESSION: 1. New vascular catheter placement as noted above 2. No acute pulmonary processes
[2018-11-14] MEDS: Morphine Sulfate 2 mg/mL 1mL Syr IVP PRN (20:55)
--- NOTE | 2018-11-14 22:02 | Progress Notes ---
DATE: 11/14/2018 SUBJECTIVE: This 68-year-old female patient seen and examined. The patient continues to have abdominal pain. Discussed with the claims correspondence clerk, recommended that the patient needs to have CT angiogram of the abdomen. The patient is scheduled to have a procedure done today. PHYSICAL EXAMINATION: VITAL SIGNS: Temperature 97.6, pulse 70, respiratory rate 18, blood pressure 134/62. HEENT: No facial asymmetry. NECK: Supple, no JVD. HEART: Regular. LUNGS: Clear. ABDOMEN: Soft, epigastric tenderness noted. Bowel sounds present. No palpable mass. EXTREMITIES: No edema. CLINICAL IMPRESSION: 1. Persistent abdominal pain. 2. Gastritis and gastroparesis. 3. Diabetes mellitus. 4. Hypertension. 5. Chronic pain syndrome. 6. History of cerebrovascular accident. PLAN: 1. Proceed with CT angio for now. 2. Continue antibiotics. 3. GI followup. 4. Symptomatic therapy. 5. Medication management. 6. General nursing care. 7. Follow labs and bilingual sales consultant's recommendations. Care plan reviewed and discussed with staff. JOB# [id number]
[2018-11-15] MEDS: Morphine Sulfate 2 mg/mL 1mL Syr IVP PRN ×2 (00:55→05:01)
[2018-11-15] MEDS: INSULIN LISPRO SLIDING SCALE 100 UNITS/ML UNIT SUBQ SCH ×2 (06:33→11:45)
[2018-11-15] MEDS: Pantoprazole 40 mg EC Tab PO SCH (06:33)
[2018-11-15] MEDS: Insulin Glargine 100 units/ml 10ml Vial SUBQ SCH (09:11)
[2018-11-15] MEDS: Multivitamin Tab PO SCH (09:23)
[2018-11-15] MEDS: POLYETHYLENE GLYCOL 3350 17 GM PACK PO SCH (09:23)
[2018-11-15] MEDS: Lactobacillus Rhamnosus GG 15 Billion CFU CAP.SPRINK PO SCH (09:24)
--- NOTE | 2018-11-15 10:15 | Discharge Summary ---
DATE OF DISCHARGE: 11/15/2018 PATIENT'S ID: A 68-year-old female. DATE OF DISCHARGE TO [facility]: 11/15/2018. PRINCIPAL DIAGNOSES: 1. Acute abdominal pain, most likely secondary to multiple factors including gastritis, gastroparesis and possible mesenteric ischemia. 2. Diabetes mellitus. 3. Abdominal wall hernia. 4. Hypertension. 5. Chronic pain syndrome. 6. Hyperlipidemia. 7. Degenerative joint disease. 8. Anxiety, depression. 9. Peripheral vascular disease. 10. Chronic pain. 11. Extensive atherosclerosis of aorta. 12. Decline in self-care and mobility. BRIEF STATEMENT FOR REASON FOR ADMISSION: A 68-year-old female admitted to [facility] for evaluation of abdominal pain after the patient was noted to have elevated lactic acid, leukocytosis and abnormal CT scan of abdomen and pelvis. Please refer to my medical H and P for further information. HOSPITAL COURSE: The patient was admitted to Med/Surg floor. The patient was given IV fluid, IV antibiotic, and pain management was provided. GI consult was requested. Appropriate home medicine was reconciled. The patient was seen by mac operator and the patient underwent upper endoscopy, which was performed on 11/11/2018, which did reveal the patient had diffuse gastritis, large hiatal hernia with some compartment defect on the stomach. The patient was also noted to have some gastroparesis as well. The patient was given symptomatic therapy with proton pump inhibitor, which was helping, but the patient was still having pain. It was decided that the patient should go for CT angio of celiac artery. Unfortunately, it was not performed due to patient had a SULFA allergy. Based on that, I decided that the patient can have the test to be done as an outpatient since the patient had a test done here. The patient had a CT angio was done before at an outside facility, which I will perform as an outside. The patient has been discharged with continuation of same treatment plan as receiving, now will follow this patient in a halfway. At the time of transfer all of her medications were reconciled. [facility]# [id number]
--- NOTE | 2018-11-15 13:55 | Pathology Report ---
[id number] Collection Date: 11/11/2018. Surgeon: Dr. Cindi William. Specimen Description: Antrum biopsy. Gross Description: Received in formalin are two smith soft tissue fragments ranging from 0.1 to 0.2 cm in greatest dimension. Totally submitted one cassette. Microscopic Description: The histologic sections show gastric mucosa with mild chronic inflammation present consisting of lymphocytes and plasma cells. There is no evidence for ulceration or atypia. The Giemsa stains shows no evidence for Helicobacter pylori. Diagnosis: 1. Mild chronic gastritis, antrum biopsy. 2. The Giemsa stain is negative for Helicobacter pylori. [facility]# [id number] [facility]
== END 2018-11-15 13:37 | DRG 73 ==
LOC: ER 12:21 → MSI 19:35
PROVIDERS: ADMIT Internal Medicine; ATTEND Internal Medicine
PROC: 0DB78ZX Excision of Stomach, Pylorus, Via Natural or Artificial Opening Endoscopic, Diagnostic (ICD-10-PCS; principal; 2018-11-11)
DX: E11.43 Type 2 diabetes mellitus with diabetic autonomic (poly)neuropathy (principal); K55.059 Acute (reversible) ischemia of intestine, part and extent unspecified; E87.2 Acidosis; E87.1 Hypo-osmolality and hyponatremia; I69.354 Hemiplegia and hemiparesis following cerebral infarction affecting left non-dominant side; F11.20 Opioid dependence, uncomplicated; K29.60 Other gastritis without bleeding; I10 Essential (primary) hypertension; G89.4 Chronic pain syndrome; E78.5 Hyperlipidemia, unspecified; F41.9 Anxiety disorder, unspecified; K52.9 Noninfective gastroenteritis and colitis, unspecified; E86.0 Dehydration; R31.9 Hematuria, unspecified; E11.65 Type 2 diabetes mellitus with hyperglycemia; K31.84 Gastroparesis; E11.42 Type 2 diabetes mellitus with diabetic polyneuropathy; E11.51 Type 2 diabetes mellitus with diabetic peripheral angiopathy without gangrene; M19.90 Unspecified osteoarthritis, unspecified site; G40.909 Epilepsy, unspecified, not intractable, without status epilepticus; F32.9 Major depressive disorder, single episode, unspecified; I70.0 Atherosclerosis of aorta; E66.01 Morbid (severe) obesity due to excess calories; K56.41 Fecal impaction; R22.9 Localized swelling, mass and lump, unspecified; E87.6 Hypokalemia; K46.9 Unspecified abdominal hernia without obstruction or gangrene; K44.9 Diaphragmatic hernia without obstruction or gangrene; Z88.2 Allergy status to sulfonamides; Z90.49 Acquired absence of other specified parts of digestive tract; Z68.36 Body mass index [BMI] 36.0-36.9, adult
CPT/HCPCS: 36415-UA; 71045-TC; 80048-TC; 80053-TC; 80061-TC; 81001-TC; 82150-TC; 82550-TC; 82948-90; 83036-90; 83605; 83690-TC; 83735-TC; 83880-TC; 84484-TC; 85007-TC; 85025-TC; 85610-TC; 87086-90; 87338-TC; 93005; 96375; J1815; J1885; J1956; J2060; J2250; J2270; J2405; J2543; J7030; X6024; Z7610